=== PATIENT | male | born 1980 | race Caucasian/White ===

== ENCOUNTER 2016-02-11 09:48 | Inpatient (IN) | payer OTHER ==
[~2016-02-11] VITALS: Ht 177.8 cm; Wt 82.8 kg
[2016-02-11] VITALS (10 sets, daily range): BP systolic 80–102; BP diastolic 46–66
[~2016-02-11 09:48] MED LIST: ALBUTEROL2.5 MG/3 M IN; CO Q-10100 MG PO; IBUPROFEN600 MG PO; KEPPRA500 MG PO; LEVAQUIN500 MG PO; TEGRETOL-XR200 MG PO; VITAMIN C TR500 M1 PO; VITAMIN D-31000 UNIT PO; ZYVOX600 MG PO; [UNRECOGNIZED DRUG - MIXTURE] PO
--- NOTE | 2016-02-11 12:28 | DIAGNOSTIC IMAGING REPORT ---
PROCEDURE: XR CHEST 1 VIEW INDICATION: SHORTNESS OF BREATH TECHNIQUE: Portable AP view 12:20 p.m. chest 02/14/20152014 and 2009 COMPARISON: chest 02/14/20152014 and 2009 FINDINGS: There is right lower lobe infiltrate and volume loss. There is a left pleural effusion and infiltrate. Heart and pulmonary vasculature are normal. IMPRESSION: 1. Bibasilar infiltrates with small air bronchograms.
--- NOTE | 2016-02-11 14:30 | ED CLINICAL REPORT ---
Clinical Report - Physicians/Mid Levels [facility] [address] [place] [address] 02/11/2016 9:49 Patient: STEFAN CONRAD JR Arrived- By ambulance. Historian- EMS personnel and family. HISTORY OF PRESENT ILLNESS Chief Complaint: FEVER. This started passed 2 days and is still present and worsening. It was gradual in onset and has been constant but is not gone now. The illness is described as moderate. The patient has had a cough, difficulty breathing and fever. Additional history - The patient has had contact with a sick individual. (mom states that he has not been able to eat or drink in the past several days. Mom states that he is also not been able take any of his medications by mouth.). Similar symptoms previously: ( mother reports several instances where the patient is septicwhen he gets like this.). Recent medical care: Not recently seen/assessed. REVIEW OF SYSTEMS Unable to obtain secondary to patient's status. Patient isdevelopmentally delayed. PAST HISTORY See nurses notes. Additional Surgeries: no known surgeries. Medications: Cephalexin Oral, 3x a day. CarBAMazepine Oral. CoQ-10 Oral. Iodine Oral. Keppra Oral. Vitamins. Allergies: Morphine and Related. Penicillins. Sulfa Antibiotics. SOCIAL HISTORY Never smoker. Not exposed to second-hand smoke at home. No alcohol use or drug use. No recent travel. Is a local resident. FAMILY HISTORY Negative. PHYSICAL EXAM Appearance: Alert. Patient in mild distress. Eyes: Pupils equal, round and reactive to light. Eyes normal inspection. ENT: Ears normal. Nose normal. (Unable to examine posterior pharynx. Patient bites down and does not open his mouth with commands. Unable to open with tongue depressor.). Neck: Normal inspection. Neck supple. CVS: Tachycardia. Heart sounds normal. Pulses normal. Normal rhythm. Respiratory: Retractions. Accessory muscle use. Rhonchi present (Bilateral, right worse than left.). Abdomen: Soft and nontender. No organomegaly. Back: Normal inspection. Skin: Skin warm and dry. Normal skin color. No rash. Normal skin turgor. Extremities: No lower extremity edema. Neuro: (Patient does not follow commands. Moves all 4 extremities spontaneously and purposefully. Upper extremities are in a flexion like contracture.). LABS, X-RAYS, AND EKG Chest X-ray: (PROCEDURE: XR CHEST 1 VIEW INDICATION: SHORTNESS OF BREATH TECHNIQUE: Portable AP view 12:20 p.m. chest 02/14/20152014 and 2009 COMPARISON: chest 02/14/20152014 and 2009 FINDINGS: There is right lower lobe infiltrate and volume loss. There is a left pleural effusion and infiltrate. Heart and pulmonary vasculature are normal. IMPRESSION: 1. Bibasilar infiltrates with small air bronchograms.). Laboratory Tests: UA-Culture if indicated: (HERBERTH: 02/11/2016 11:45) ( [facility] [place] 02/11/2016 12:28) Final results Test Result Flag Units (Reference) URINE COLOR YELLOW URINE APPEARANCE SL CLOUDY URINE GLUCOSE NEGATIVE (NEGATIVE) URINE BILIRUBIN NEGATIVE (NEGATIVE) URINE KETONE 1+ (NEGATIVE) URINE SPECIFIC GRAVITY >= 1.030 (1.010-1.030) URINE PH 5.5 (5.0-8.0) URINE PROTEIN 1+ (NEGATIVE) URINE UROBILINOGEN 0.2 EU/dL (0.2-1.0) URINE NITRITE NEGATIVE (NEGATIVE) URINE BLOOD NEGATIVE (NEGATIVE) URINE LEUK ESTERASE TRACE (NEGATIVE) URINE RBC NONE SEEN rbc/hpf (0-1) URINE WBC 25-50 wbc/hpf (0-1) URINE EPITHELIAL CELLS 3-5 EPI/hpf (0-5) URINE BACTERIA MODERATE (2+ TO 3+) (NONE SEEN) URINE COMMENT CULTURE INDICATED 2+ MUCOUS2+ AMORPHOUS URATESURINE CULTURES ARE SET-UP BASED ON THE FOLLOWING CRITERIA:POSITIVE NITRITEPOSITIVE LEUKOCYTE ESTERASEGREATER THAN 10 WHITE BLOOD CELLSMODERATE (2+) OR GREATER BACTERIA CBC w Diff: (HERBERTH: 02/11/2016 10:45) ( [facility] [place] 02/11/2016 11:39) Final results Test Result Flag Units (Reference) WHITE BLOOD COUNT 18.5 H K/uL (4.5-11.5) RED BLOOD COUNT 4.88 M/uL (4.50-5.90) HEMOGLOBIN 14.3 gm/dL (13.5-17.5) HEMATOCRIT 44.0 % (41.0-53.0) MEAN CELL VOLUME 90 fL (80-100) MEAN CORPUSCULAR HGB 29 pg (26-34) MEAN CORPUSCULAR HGB CONC 33 g/dL (31-37) RED CELL DISTRIBUTION WIDTH 13.1 % (11.6-14.8) PLATELET COUNT 244 K/uL (150-400) POLY % 49 L % (50-75) BAND % 28 H % (0-8) LYMPH 13 L % (25-40) MONO 10 % (3-14) EOSINOPHIL % 0 % (0-4) BASOPHIL % 0 % (0-2) METAMYELOCYTE % 0 % (0-1) MYELOCYTE 0 % (0-1) OTHER CELL TYPE 0 RBC MORPHOLOGY NORMAL MORPHOLOGY Lactate, Serum: (HERBERTH: 02/11/2016 13:00) ( [facility] [place] 02/11/2016 13:48) Final results Test Result Flag Units (Reference) LACTIC ACID 0.6 mmol/L (0.4-2.0) [id number]: (HERBERTH: 02/11/2016 10:45) ( [facility] [place] 02/11/2016 13:42) Final results Test Result Flag Units (Reference) PROCALCITONIN <0.5 ng/mL (0-0.5) PCT Concentration: Interpretation : Risk/option for action PCT <=0.5 ng/mL : Systemic : Low risk forinfection(sepsis): progression to severeis not likely. : systemic infection.Local bacterial : CAUTION-PCT levelsinfection is : below 0.5 ng/mL do notpossible. : exclude an infection,because localizedinfections (withoutsystemic signs) may beassociated with suchlow levels. If PCT ismeasured very earlyafter a bacterialchallenge (usually <6hours), these valuesmay still be low. Inthis case PCT shouldbe re-assessed 6-24hours later. PCT >0.5 and : Systemic infection: Moderate risk for<= 2 ng/mL : (sepsis) is : progression to severepossible, but : systemic infection.other conditions : The patient should beare known to : closely monitoredelevate PCT. : both clinically andby re-assessing PCTwithin 6-24 hours. PCT > 2 ng/mL : Systemic infection: High risk for(sepsis) is likely: progression to severeunless other : systemic infection.causes are known. : PCT >= 10 ng/mL : Important systemic: High likelihood ofinflammatory : severe sepsis orresponse, almost : septic shock.exclusively due to:severe bacterial :sepsis or septic :shock. : CMP: (HERBERTH: 02/11/2016 10:45) ( MsgRcvd 02/11/2016 11:33) Final results Test Result Flag Units (Reference) GLUCOSE 97 mg/dL (70-110) BUN 29 H mg/dL (7-18) CREATININE 0.9 mg/dL (0.6-1.3) Estimated GFR >60 mL/min Estimated GFR- >60 mL/min Note: Persistent reduction over 3 months in eGFR<60 mL/min/1.73 m2 defines CKD. Patients with eGFR values>=60 mL/min/1.73 m2 may also have CKD if evidence ofpersistent proteinuria. Additional information may be foundat www.kidney.org. SODIUM 142 mmol/L (136-145) POTASSIUM 3.3 L mmol/L (3.5-5.1) CHLORIDE 107 mmol/L (98-107) CARBON DIOXIDE 25 mmol/L (21-32) CALCIUM 9.3 mg/dL (8.5-10.1) TOTAL PROTEIN 7.0 g/dL (6.4-8.2) ALBUMIN 3.9 g/dL (3.3-5.0) BILIRUBIN, TOTAL 0.3 mg/dL (0.0-1.0) ALKALINE PHOSPHATASE 95 U/L (46-116) AST (SGOT) 30 U/L (15-37) ALT (SGPT) 55 U/L (12-78) RSV Rapid Screen: (HERBERTH: 02/11/2016 13:10) ( MsgRcvd 02/11/2016 14:41) Final results SPECIMEN DESCRIPTION: MUCUS Test Result Flag Units (Reference) RSV RAPID TEST DATE: 02/11/16 NEGATIVE SCREEN: NEGATIVE If Rapid RSV test is Negative but RSV is still suspected, a confirmatory RSV DFA can be requested. RAPID INFLUENZA SCREEN DATE: 02/11/16 INFLUENZA A: NEGATIVE SCREEN FOR INFLUENZA A INFLUENZA B: NEGATIVE SCREEN FOR INFLUENZA B . Pulse Oximetry: 02/11/2016 09:52 O2 saturation: 93%. (FIO2- simple mask). Interpretation: hypoxemia. PROGRESS AND PROCEDURES Course of Care: The patient is a 35-year-old male who is at baseline noncommunicative presenting for evaluation of respiratory tract symptoms as well as fever. On examination, patient with abnormal breath sounds. Chest x-ray will be ordered as well as breathing treatments for the patient. Patient had artery received several breathing treatments from EMS. This seemed to have improved based on their repeat evaluation. Patient is tachycardic on examination. Fluids will be ordered. Patient with positive urinalysis and abnormal chest x-ray. Had discussion with patient's primary care doctor in regards to the patient's symptoms today here in the emergency department. Patient reportedly havinghistory of chronic urinary tract infections and being incontinent. Regardless, antibiotics for the pneumonia found on chest x-ray will help cover the urinary tract infection. I discussion with mother necrosed his symptoms today here in the emergency department. Laboratory workup is also markable for increased band count. Patient with 28% bands. Patient meets sepsis criteria based on the band count, overall white count, and tachycardia. Blood cultures also obtained. Lactic acid normal. PCTnormal. Consult placed to the hospitalist who will accept the patient. No further recommendations. While patient was here in the emergency department awaiting ICU transfer, patient was noted to have decreased oxygen saturations. Another breathing treatment was ordered forthe hypoxia and rhonchi. Patient was also set up in bed. Patient was slumped over to the right side and suspect that there was a component of restrictionof his lung movement which contributed or exacerbated his hypoxia. Patient significantly improved when sat up. Patient in the mid 80s. However patient is still needing supplemental oxygen at this time. patient's condition is guarded at this time. Do not feel patient needs to be intubated at this time. Patient is not showing any signs of respiratory failure. Discussed with mother workup, diagnosis, and plan of care. All questions answered. Mother expressed understanding of these instructions and was agreeable to them. Critical care performed (60 minutes). Time is exclusive of separately billable procedures. Time includes: direct patient care, patient reassessment, coordination of patient care, interpretation of data (laboratory data, pulse oximetry and chest xrays), review of patient's medical records, medical consultation, family consultation regarding treatment decisions and documentation of patient care. Disposition: Admitted to the Critical Care Unit. CLINICAL IMPRESSION sepsis hypotension pneumonia acute bilateral lower lobe UTI. (Electronically signed by Ashkan Crawford Dr. 02/11/2016 17:25)
--- NOTE | 2016-02-11 14:30 | ED ORDER SUMMARY ---
..... Patient: STEFAN CONRAD JR OrderSheet [facility] VisitID: [id number] [place] [address] 35y, M Registration Date/Time: 02/11/2016 ORDER SHEET Weight: 76 kg (measured) Allergies: Morphine and Related, Penicillins, Sulfa Antibiotics GENERAL ORDERS: CBC w Diff Urgent (10:51 02/11/2016 Mendoza R.N. verbal order read back to Lucy Hobson) (Ack 11:17 [facility] ER Tech1) (11:17 [facility] ER Tech1) CMP Urgent (10:51 02/11/2016 Mendoza R.N. verbal order read back to Lucy Hobson) (Ack 11:17 [facility] ER Tech1) (11:17 [facility] ER Tech1) UA-Culture if indicated Urgent (10:51 02/11/2016 Mendoza R.N. verbal order read back to Lucy Hobson) (Ack 11:17 [facility] ER Tech1) (12:03 omanelli R.N.) - (straight cath) (11:19 02/11/2016 Lucy Hobson) (12:03 Mendoza R.N.) Chest 1V Urgent (11:48 02/11/2016 Mendoza R.NKate verbal order read back to Lucy Hobson) (12:11 omanelli R.N.) Rapid Influenza Screen (Nasal Pharyngeal) (mucus) Urgent (12:46 02/11/2016 Lucy Hobson) (13:20 SBalde R.N.) RSV Rapid Screen (Nasal Pharyngeal) (mucus) Urgent (12:47 02/11/2016 Lucy Hobson) (13:20 LONIalde R.N.) PCT (Procalcitonin) Urgent (12:47 02/11/2016 Lucy Hobson) (13:08 Mendoza R.N.) Lactate, Serum Urgent (12:47 02/11/2016 Lucy Hobson) (13:08 Mendoza R.N.) Blood Culture (No) (N/A) Urgent (13:18 02/11/2016 Lucy Hobson) (13:29 Mendoza R.N.) Potassium Urgent (13:55 02/11/2016 Mendoza R.N. verbal order read back to Lucy Hobson) (13:55 Monicaelli R.N.) (Cancelled: Other13:55 omanelli R.N.) MEDICATION ORDERS: Potassium Chloride PO 20 meq (once now over 1 hour) (13:34 02/11/2016 Lucy Hobson) (Cancelled: Other13:54 Mendoza R.N.) Keppra IVPB 1000 mg (NOW, To be mixed as infusion) (15:46 02/11/2016 Lucy Hobson) (Ack 16:18 ABarnum R.N.) (16:18 ABarnum R.N.) IV FLUIDS: IV NS : initial bolus none -, then 250 mL/hr (NOW) (10:28 02/11/2016 Mendoza R.N. per protocol) (10:31 Mendoza R.N.) IV NS : initial bolus 750 mL (1000 mL/hr), then 1000 mL/hr for X1 (NOW) (12:05 02/11/2016 Mendoza R.NKate verbal order read back to Lucy Hobson) (12:13 Mendoza R.N.) Ceftriaxone IV 2 gm/50mL (NOW) (13:33 02/11/2016 Lucy Hobson) (13:41 Mendoza R.N.) Azithromycin IV 500 mg/250 mL (NOW) (13:34 02/11/2016 Lucy Hobson) (15:31 Mendoza R.N.) Rocephin IV 2 gm/50mL (NOW) (13:39 02/11/2016 Mendoza R.N. verbal order read back to Lucy Hobson) (Cancelled: Duplicate Order13:47 Mendoza R.N.) Potassium Chloride IV 20 meq/100mL (Run no faster than 10 mEq/hr) (13:56 02/11/2016 Mendoza R.N. verbal order read back to Lucy Hobson) (14:02 Mendoza R.N.) IV NS : initial bolus none -, then 1000 mL/hr (NOW) (15:31 02/11/2016 Mendoza R.N. verbal order read back to Lucy Hobson) (15:34 Mendoza R.NKate) (Cancelled: Other17:25 Mendoza Wheeler.Juan Francisco) Ativan IV 1 mg (HIGH ALERT MEDICATION, NOW) (16:19 02/11/2016 ABarnjose d R.N. verbal order read back to Lucy Hobson) (16:20 ABarnum R.N.) ORDER SHEET NOTES: [Electronically signed by Ashkan Crawford Dr. (17:25 02/11/2016)] [Electronically signed by Garcia Nicole R.N. (19:19 02/11/2016)] [Electronically locked/signed by Garcia Nicole R.N. (19:02/11/2016)]
--- NOTE | 2016-02-11 14:30 | ED NURSING NOTES ---
Clinical Report - Nurses [facility] [address] [place] [address] 02/11/2016 9:49 Patient: STEFAN CONRAD JR TRIAGE Triage time 09:40 Feb 11 2016. Acuity: LEVEL 3. Chief Complaint: SHORTNESS OF BREATH and DIFFICULTY BREATHING and (fever). Alert. VISHNU COMA SCORE: Vishnu Coma Scale: 13- eyes open spontaneously (4); best verbal response- inappropriate speech (3); best motor response- obeys commands (6). --10:04 Garcia Nicole R.N. 09:52 02/11/16. BP: 95/61. HR: 121. RR: 24. O2 saturation: 93% on non-rebreather at 13 liters/minute. Pain level now not taken due to patient condition: cannot qualify. --10:04 Garcia Nicole R.N. 10:28 02/11/16. Temp: 99.5 F (rectal). --10:28 Garcia Nicole R.N. Weight: 76 kg measured. Height/Length: 70 inches Estimated. BMI: 24. --09:54 Garcia Nicole R.N. Medications CarBAMazepine Oral. CoQ-10 Oral. Iodine Oral. Keppra Oral. Vitamins. --09:53 Garcia Nicole R.N. Cephalexin Oral, 3x a day. --09:54 Garcia Nicole R.N. Allergies Morphine and Related. Penicillins. Sulfa Antibiotics. --09:53 Garcia Nicole R.N. History Historian: patient. Arrived (MEDIC 46) and accompanied by mother. ( SOB associated with fever). Onset. (about 3 days ago). SURGERY HX: No history of previous surgery. SOCIAL HX: Never smoker. No alcohol use or drug use. No infectious disease exposure. SKIN INTEGRITY ASSESSMENT: Skin integrity risk assessment was performed. Risk factors identified include restricted mobility. ABUSE ASSESSMENT: No report of abuse. NUTRITIONAL RISK ASSESSMENT: The nutritional risk assessment revealed no deficiencies. FALL RISK ASSESSMENT: Fall risk assessment completed. Risk factors identified include patient impairment of mobility. FUNCTIONAL ASSESSMENT: Functional assessment performed: mobility impairment present- this mobility impairment is a new problem. LEARNING NEEDS ASSESSMENT: The learning needs assessment could not be obtained due to the patient's condition. --10:04 Garcia Nicole R.N. PROBLEMS: Laceration. Developmental Delay. Changed Mental Status. Fall. Intubation. Head Injury. Seizure. Recent Travel. Sick Contact. Autism. Febrile Illness. Constipation. Ureterolithiasis. UTI - Urinary Tract Infection. Pneumonia. --10:02 Garcia Nicole R.N. Interventions ID and allergy band on patient. To treatment room. --10:04 Garcia Nicole R.N. PHYSICAL ASSESSMENT To room via stretcher. GENERAL / NEURO / PSYCH: Alert. HEENT: Mucous membranes are pink. RESPIRATORY: No respiratory distress. Respirations not labored. Chest nontender. Breath sounds within normal limits. CVS: Normal sinus rhythm noted. GI / : Abdomen soft and nontender. SKIN: Skin is warm and dry. Normal skin turgor. --10:09 Garcia Nicole R.N. NURSING PROGRESS NOTES Oxygen administered by nonrebreather mask at 100%. Patient gowned. Reassurance given. Patient identifiers checked. Call light placed in reach. Side rails up x 2. Bed placed in lowest position. Brakes of bed on. Patient ready for evaluation- chart flagged and ED physician notified. --10:09 Garcia Nicole R.N. <<STRICKEN ENTRY-- 10:06 02/11/2016 Site #1 started prior to arrival by EMS via IV in the right with an 20g angiocath, with aseptic technique and good blood return; one attempt. Saline lock flushed with 10 mL saline (start by EMS in the field). --10:31 Garcia Nicole R.N. --END STRIKE>> Correction. --17:28 Garcia Nicole R.N. 10:06 02/11/2016 Started bag #1 1000 mL IV Fluids IV NS (Saline); at 250 mL/hr over 4 hour(s) via site #1 via IV pump. Allergies verified and confirmed 5 rights. IV patency established. IV site checked: no pain, redness, or swelling. IV flushed thoroughly pre- and post-medication administration. --10:31 Garcia Nicole R.N. 10:45 02/11/2016 Site #2 started via IV in the right forearm with an 20g angiocath, with aseptic technique and good blood return (start in field by EMS). --12:10 Garcia Nicole R.N. 11:30 02/11/16. Checked patient name, birthdate and medical record number. Blood samples drawn from the left antecubital space peripheral IV site with syringe by nurse ; labeled in presence of the patient and sent to lab: rainbow set. Line flushed with 10 mL normal saline post blood draw. --12:02 Garcia Nicole R.N. 12:00 02/11/16. Patient ID band checked for patient name, birthdate and medical record number: patient confirmed. Catheterized urine collected with return of rogelio-colored cloudy urine; odor is normal; sample sent to lab for urinalysis and culture. Specimen labeled in the presence of the patient. --12:03 Garcia Nicole R.N. <<STRICKEN ENTRY-- 12:00 02/11/2016 Started bag #1 750 mL IV Fluids IV NS (Saline); at 750 mL/hr over 60 minute(s) via site #2 via IV pump. Allergies verified and confirmed 5 rights. IV patency established. IV site checked: no pain, redness, or swelling. IV flushed thoroughly pre- and post-medication administration. --12:13 Garcia Nicole R.N. --END STRIKE>> Correction. --13:33 Garcia Nicole R.N. <<STRICKEN ENTRY-- 13:04 02/11/2016 IV Fluids IV NS Bag Change: bag #1. Total amount infused: 1000. STARTED bag #3 (1000 mL) at 500 mL/hr via IV pump. Confirmed 5 rights. IV patency established. IV site checked: no pain, redness, or swelling. IV flushed thoroughly. --13:09 Garcia Nicole R.N. --END STRIKE>> Correction. --13:34 Garcia Nicole R.N. Patient ID band checked. Flu swab obtained by RN via nasal swab. Labeled in the presence of the patient. --13:23 Jo Ann Jj R.N. 10:06 02/11/2016 Site #1 started prior to arrival by EMS via IV in the left antecubital space with an 18g angiocath, with aseptic technique and good blood return; one attempt. Saline lock flushed with 10 mL saline (start by EMS in the field). --17:28 Garcia Nicole R.N. 12:00 02/11/2016 Started bag #2 750 mL IV Fluids IV NS (Saline); at 750 mL/hr over 60 minute(s) via site #2 via IV pump. Allergies verified and confirmed 5 rights. IV patency established. IV site checked: no pain, redness, or swelling. IV flushed thoroughly pre- and post-medication administration. --13:33 Garcia Nicole R.N. 13:04 02/11/2016 IV Fluids IV NS Bag Change: bag #2. Total amount infused: 1000. STARTED bag #3 (1000 mL) at 500 mL/hr via IV pump. Confirmed 5 rights. IV patency established. IV site checked: no pain, redness, or swelling. IV flushed thoroughly. --13:34 Garcia Nicole R.N. 13:17 02/11/2016 IV Fluids IV NS Discontinued: bag #1 infused. Total amount infused: 1000 mL. IV patency established. IV site checked: no pain, redness, or swelling. IV flushed thoroughly. --13:32 Garcia Nicole R.N. 13:41 02/11/2016 Started 2 gm of Ceftriaxone IVPB in bag #1 50 mL; at 100 mL/hr over 30 minute(s) via site #2 --13:41 Garcia Nicole R.N. 13:57 02/11/2016 Started 20 meq of Potassium Chloride (Potassium Chloride) IVPB in bag #1 100 mL; at 50 mL/hr over 2 hour(s) via site #2 via IV pump. Allergies verified and confirmed 5 rights. IV patency established. IV site checked: no pain, redness, or swelling. IV flushed thoroughly pre- and post-medication administration. --14:02 Garcia Nicole R.N. 14:20 02/11/2016 Ceftriaxone IVPB Discontinued: bag #1. Total amount infused: 50 mL. IV patency established. IV site checked: no pain, redness, or swelling. IV flushed thoroughly. --19:04 Garcia Nicole R.N. 15:06 02/11/2016 Started 500 mg of Azithromycin IVPB in bag #1 250 mL; at 255 mL/hr over 60 minute(s) via site #2 via IV pump. Allergies verified and confirmed 5 rights. IV patency established. IV site checked: no pain, redness, or swelling. IV flushed thoroughly pre- and post-medication administration. --15:31 Garcia Nicole R.N. 15:18 02/11/2016 Started bag #4 1000 mL IV Fluids IV NS (Saline); at 1000 mL/hr over 60 minute(s) via site #2 via IV pump. Allergies verified and confirmed 5 rights. IV patency established. IV site checked: no pain, redness, or swelling. IV flushed thoroughly pre- and post-medication administration. --15:34 Garcia Nicole R.N. 16:13 02/11/2016 Started 1000 mg of Keppra (LevETIRAcetam) IVPB in bag #1 110 mL; at 440 mg/hr over 15 minute(s) via site #2 --16:18 Shruthi May R.NKate 16:15 02/11/2016 Ativan (LORazepam) IVP 1 mg given over 2 minute(s) via site #1. Allergies verified, confirmed 5 rights and sedative warning given to the patient and patient's family. IV patency established. IV site checked: no pain, redness, or swelling. IV flushed thoroughly pre- and post-medication administration. IVP given by RN. --16:20 Shruthi May R.NKate 16:15 02/11/2016 IV Fluids IV NS Discontinued: bag #3 discontinued. Total amount infused: 250 mL. IV patency established. IV site checked: no pain, redness, or swelling. IV flushed thoroughly. --19:02 Garcia Nicole RKateNKate 16:28 02/11/2016 Hold IV Fluids IV NS: due to patient condition. --16:43 Shruthi MaySummer.NKate 16:30 02/11/2016 Azithromycin IVPB Discontinued: bag #1 completed. Total amount infused: 255 mL. IV patency established. IV site checked: no pain, redness, or swelling. IV flushed thoroughly. --16:45 [place]ah[place]May R.NKate 16:38 02/11/2016 Keppra IVPB Discontinued: bag #1 completed. Total amount infused: 110 mL. IV patency established. IV site checked: no pain, redness, or swelling. IV flushed thoroughly. --16:43 [place] R.NKate 16:43 02/11/2016 Ativan IVP Response: no adverse reaction. --16:43 ShruthiMay, R.NKate 12:30 02/11/16. BP: 89/59. HR: 104. RR: 25. O2 saturation: 93% on non-rebreather at 13 liters/minute. --17:47 Garcia Nicole R.N. 13:45 02/11/16. BP: 94/66. HR: 103. RR: 33. O2 saturation: 90% on non-rebreather at 13 liters/minute. --17:49 Garcia Nicole R.N. 14:15 02/11/16. BP: 103/65. HR: 122. RR: 33. O2 saturation: 88% on room air. --17:50 Garcia Nicole R.N. 15:00 02/11/16. BP: 105/65. HR: 171. RR: 39. O2 saturation: 87% on non-rebreather at 13 liters/minute. --17:52 Garcia Nicole R.N. 16:00 02/11/16. BP: 106/67. HR: 155. RR: 38. O2 saturation: 87% on non-rebreather at 13 liters/minute. --17:54 Garcia Nicole R.N. 16:30 02/11/16. BP: 95/67. HR: 156. RR: 38. O2 saturation: 86% on non-rebreather at 13 liters/minute. --17:55 Garcia Nicole R.N. 17:00 02/11/2016 Potassium Chloride IVPB Discontinued: infused. Total amount infused: 100 mL. IV patency established. IV site checked: no pain, redness, or swelling. IV flushed thoroughly. (Potassium Chloride 20MEq IVPB). --19:07 Garcia Nicole R.N. 17:03 02/11/2016 Site #[address] upon admission; patent, no pain and no signs of infection or infiltration. Good blood return present; flushes easily. --19:16 Garcia Nicole R.N. 17:03 02/11/2016 Site #[address] upon admission; patent, no pain and no signs of infection or infiltration. Good blood return present. Flushed. --19:18 Garcia Nicole R.N. DISPOSITION / DISCHARGE 16:55 02/11/16. BP: 84/51. HR: 160. RR: 38. O2 saturation: 87% on non-rebreather at 13 liters/minute. --17:34 Garcia Nicole R.N. Departure time: 1703. --17:34 Garcia Nicole R.N. 17:03. Admitted to the Critical Care Unit. Transported via stretcher by nurse with monitor, IV, O2 and ambu bag. Patient's personal items; items were placed in belongings bag, given to the patient and transported with the patient. --17:37 Garcia Nicole R.N. Locked/Released at 02/11/2016 19:19 by Garcia Nicole R.N.
--- NOTE | 2016-02-11 14:30 | ED ORDER SUMMARY ---
..... Patient: STEFAN CONRAD JR OrderSheet [facility] VisitID: [id number] [place] [address] 35y, M Registration Date/Time: 02/11/2016 ORDER SHEET Weight: 76 kg (measured) Allergies: Morphine and Related, Penicillins, Sulfa Antibiotics GENERAL ORDERS: CBC w Diff Urgent (10:51 02/11/2016 Mendoza R.N. verbal order read back to Lucy Hobson) (Ack 11:17 [facility] ER Tech1) (11:17 [facility] ER Tech1) CMP Urgent (10:51 02/11/2016 Mendoza R.N. verbal order read back to Lucy Hobson) (Ack 11:17 [facility] ER Tech1) (11:17 [facility] ER Tech1) UA-Culture if indicated Urgent (10:51 02/11/2016 Mendoza R.N. verbal order read back to Lucy Hobson) (Ack 11:17 [facility] ER Tech1) (12:03 omanelli R.N.) - (straight cath) (11:19 02/11/2016 Lucy Hobson) (12:03 Mendoza R.N.) Chest 1V Urgent (11:48 02/11/2016 Mendoza R.NKate verbal order read back to Lucy Hobson) (12:11 omanelli R.N.) Rapid Influenza Screen (Nasal Pharyngeal) (mucus) Urgent (12:46 02/11/2016 Lucy Hobson) (13:20 SBalde R.N.) RSV Rapid Screen (Nasal Pharyngeal) (mucus) Urgent (12:47 02/11/2016 Lucy Hobson) (13:20 LONIalde R.N.) PCT (Procalcitonin) Urgent (12:47 02/11/2016 Lucy Hobson) (13:08 Mendoza R.N.) Lactate, Serum Urgent (12:47 02/11/2016 Lucy Hobson) (13:08 Mendoza R.N.) Blood Culture (No) (N/A) Urgent (13:18 02/11/2016 Lucy Hobson) (13:29 Mendoza R.N.) Potassium Urgent (13:55 02/11/2016 Mendoza R.N. verbal order read back to Lucy Hobson) (13:55 Monicaelli R.N.) (Cancelled: Other13:55 omanelli R.N.) MEDICATION ORDERS: Potassium Chloride PO 20 meq (once now over 1 hour) (13:34 02/11/2016 Lucy Hobson) (Cancelled: Other13:54 Mendoza R.N.) Keppra IVPB 1000 mg (NOW, To be mixed as infusion) (15:46 02/11/2016 Lucy Hobson) (Ack 16:18 ABarnum R.N.) (16:18 ABarnum R.N.) IV FLUIDS: IV NS : initial bolus none -, then 250 mL/hr (NOW) (10:28 02/11/2016 Mendoza R.N. per protocol) (10:31 Mendoza R.N.) IV NS : initial bolus 750 mL (1000 mL/hr), then 1000 mL/hr for X1 (NOW) (12:05 02/11/2016 Mendoza R.NKate verbal order read back to Lucy Hobson) (12:13 Mendoza R.N.) Ceftriaxone IV 2 gm/50mL (NOW) (13:33 02/11/2016 Lucy Hobson) (13:41 Mendoza R.N.) Azithromycin IV 500 mg/250 mL (NOW) (13:34 02/11/2016 Lucy Hobson) (15:31 Mendoza R.N.) Rocephin IV 2 gm/50mL (NOW) (13:39 02/11/2016 Mendoza R.N. verbal order read back to Lucy Hobson) (Cancelled: Duplicate Order13:47 Mendoza R.N.) Potassium Chloride IV 20 meq/100mL (Run no faster than 10 mEq/hr) (13:56 02/11/2016 Mendoza R.N. verbal order read back to Lucy Hobson) (14:02 Mendoza R.N.) IV NS : initial bolus none -, then 1000 mL/hr (NOW) (15:31 02/11/2016 Mendoza R.N. verbal order read back to Lucy Hobson) (15:34 Mendoza R.NKate) (Cancelled: Other17:25 Mendoza Wheeler.Juan Francisco) Ativan IV 1 mg (HIGH ALERT MEDICATION, NOW) (16:19 02/11/2016 ABarnjose d R.N. verbal order read back to Lucy Hobson) (16:20 ABarnum R.N.) ORDER SHEET NOTES: [Electronically signed by Ashkan Crawford Dr. (17:25 02/11/2016)] [Electronically signed by Garcia Nicole R.N. (19:19 02/11/2016)] [Electronically locked/signed by Garcia Nicole R.N. (19:02/11/2016)]
--- NOTE | 2016-02-11 15:59 | Progress Note ---
Subjective General Admission History and Physical Examination Patient Name: Lester Hsieh Jr Admission Date: February 11, 2016 Primary Care Provider: Palmer Cortez M.D. Attending Physician: Ollie Pratt M.D. Admitting Physician: Ollie Pratt M.D. SUBJECTIVE Historian: Previous records Reliability: Fair-poor Chief Complaint: Shortness of breath, difficulty breathing History of Present Illness: The patient is a 35-year-old single white male with a significant past make a history of autism/developmental delay, seizure disorder, history of DVTs, recurrent UTI, asthma, who presented to [facility] emergency department on the day of admission secondary to complaints of shortness of breath and difficulty breathing. [facility] ER evaluation was consistent with bibasilar pneumonia, UTI, possible sepsis. Secondary to the above, Dr. Palmer Cortez (patient's PCP) was contacted and he requested the patient be admitted by the hospitalist service. Secondary to the above, the patient was admitted by Ollie Pratt M.D. for further evaluation and treatment. No other history available at this time. The history of present illness began approximately 3 days prior to admission when the patient developed cough, rhinorrhea, and shortness of breath. His symptoms worsened and he was seen by his family physician Dr. Cortez on the day prior to admission. He was placed on Keflex at that time. His symptoms worsened with increasing shortness of breath respiratory distress which prompted evaluation at [facility] emergency department. Evaluation [facility] emergency department showed the patient to have vital signs of blood pressure 95/61, pulse 121, respirations 24, temperature 99.5 rectally, O2 sat 93% on nonrebreather. The patient was noted to have mild respiratory distress. Laboratory evaluation included CBC hemoglobin 14.3, hematocrit 44.0, WBC 18.5, with a differential of 28 bands, 49 segs, 13 lymphs. Chemistry profile sodium 142, potassium 3.3, chloride 107, CO2 25, BUN 29, creatinine 0.9, Procalcitonin less than 0.5, lactic acid 0.6. Urinalysis trace leukocyte esterase, 25-50 WBCs, moderate bacteria. Chest x-ray showed bibasilar infiltrates. The patient had mild hypotension was treated with vigorous IV fluid support and admitted with a diagnosis of pneumonia, UTI, sepsis for further evaluation and treatment. PAST MEDICAL HISTORY Illnesses: 1. Developmental delay 2. Autism 3. Seizure disorder 4. History of DVTs 5. Recurrent UTI Allergies: 1. Morphine 2. Penicillin 3. Sulfa Medications: 1. Keppra 1000 mg by mouth twice a day 2. Tegretol 400 mg by mouth every morning and 600 mg by mouth every afternoon 3. Vitamin C 1000 mg by mouth twice a day 4. Keflex 500 mg by mouth 4 times a day Surgery: 1. None Injuries: 1. 2015, spinal fracture 2. Head injury-childhood Hospitalizations: 1. For above medical problems FAMILY HISTORY Parents: 1. Father, call, living, 61, multiple medical problems, 2. Mother, unknown Siblings: 1. Male, Ken, living, 29, development delay Children: 1. None Other significant family history: None SOCIAL HISTORY 1. Marital Status: Single 2. Zoroastrianism: None 3. Education: None 4. Employment History: Unemployed, disabled 5. Occupational health exposures: None HABITS 1. Tobacco: None 2. Drugs: None 3. Alcohol: None HEALTH SUPERVISION Item/Test 1. Not reviewed IMMUNIZATIONS: 1. Pneumococcal: 2017 2. Influenza: 2017 3. Tetanus: Unknown ADVANCED DIRECTIVES: Patient's family wishes patient placed a FULL CODE STATUS during his hospitalization REVIEW OF SYSTEMS Remarkable for those things stated in the history of present illness and past medical history. Seventeen point review of system completed with the following notable findings: Unobtainable due to patient's mental status no family present Physical Exam Vital Signs / I&Os Vital Signs Date Time Temp Pulse Resp B/P Pulse O2 O2 Flow FiO2 Ox Delivery Rate 02/10 1756 90/55 02/10 1740 15.0 02/10 1718 102.9 152 36 95/55 93 15.0 Non-Rebreather Mask 02/10 1606 15.0 General Appearance Moderate distress, Minimally interactive, no verbal response HEENT Atraumatic, PERRLA, EOMI, dry mucous membranes Lungs Normal air movement, decreased breath sounds bilateral bases with rales present one third up posterior chest wall Neck Supple, No JVD Cardiovascular Normal S1 and S2, No murmurs, gallops, rubs, tachycardic Abdomen Normal bowel sounds, Soft, No tenderness, No guarding Extremities No cyanosis, No clubbing, No edema, poor capillary refill Neurological Cranial nerves intact, No lateralizing signs Psych/Mental Status Lethargic but interactive LAB Results Laboratory Tests 02/10 02/10 02/10 1300 1145 1045 Chemistry Lactic Acid (0.4 - 2.0 mmol/L) 0.6 Procalcitonin (0 - 0.5 ng/mL) <0.5 Urines Urine Color YELLOW Urine Appearance SL CLOUDY Urine pH (5.0 - 8.0) 5.5 Ur Specific [place] (1.010 - 1.030) >= 1.030 Urine Protein (NEGATIVE) 1+ Urine Ketones (NEGATIVE) 1+ Urine Blood (NEGATIVE) NEGATIVE Urine Nitrite (NEGATIVE) NEGATIVE Urine Bilirubin (NEGATIVE) NEGATIVE Urine Urobilinogen (0.2 - 1.0 EU/dL) 0.2 Ur Leukocyte Esterase (NEGATIVE) TRACE Urine RBC (0 - 1 rbc/hpf) NONE SEEN Urine WBC (0 - 1 wbc/hpf) 25-50 Ur Epithelial Cells (0 - 5 EPI/hpf) 3-5 Urine Bacteria (NONE SEEN) MODERATE (2+ TO 3+) Urine Glucose (NEGATIVE) NEGATIVE Urine Comment CULTURE INDICATED 02/10 1045 Chemistry Plasma Sodium (136 - 145 mmol/L) 142 Plasma Potassium (3.5 - 5.1 mmol/L) 3.3 Plasma Chloride (98 - 107 mmol/L) 107 CO2 (Enzymatic) (21 - 32 mmol/L) 25 BUN (7 - 18 mg/dL) 29 Creatinine (0.6 - 1.3 mg/dL) 0.9 Est GFR ( Amer) (mL/min) >60 Est GFR (Non-Af Amer) (mL/min) >60 Glucose (70 - 110 mg/dL) 97 Plasma Calcium (8.5 - 10.1 mg/dL) 9.3 Total Bilirubin (0.0 - 1.0 mg/dL) 0.3 AST (15 - 37 U/L) 30 ALT (12 - 78 U/L) 55 Alkaline Phosphatase (46 - 116 U/L) 95 Total Protein (6.4 - 8.2 g/dL) 7.0 Albumin (3.3 - 5.0 g/dL) 3.9 Hematology WBC (4.5 - 11.5 K/uL) 18.5 RBC (4.50 - 5.90 M/uL) 4.88 Hgb (13.5 - 17.5 gm/dL) 14.3 Hct (41.0 - 53.0 %) 44.0 MCV (80 - 100 fL) 90 MCH (26 - 34 pg) 29 RDW (11.6 - 14.8 %) 13.1 Neut % (Auto) (50 - 75 %) 49 Lymph % (Auto) (25 - 40 %) 13 [place] % (Auto) (3 - 14 %) 10 Eos % (Auto) (0 - 4 %) 0 Baso % (Auto) (0 - 2 %) 0 Band Neutrophils % (0 - 8 %) 28 Metamyelocytes % (0 - 1 %) 0 Myelocytes (0 - 1 %) 0 Other Cell Type 0 Plt Count, EDTA (150 - 400 K/uL) 244 RBC Morphology NORMAL MORPHOLOGY PUBS MCHC (31 - 37 g/dL) 33 Microbiology Date/Time Procedure - Status Source Growth 02/10 1310 Respiratory Syncytial Virus Ag Scrn - COMP NASALPHAR 02/10 1310 Influenza Screen - COMP NASALPHAR 02/10 1309 Blood Culture - RECD BLOOD 02/10 1300 Blood Culture - RECD BLOOD 02/10 1145 Urine Culture - RECD URINE CC Imaging Chest X-Ray IMPRESSION: 1. Bibasilar infiltrates with small air bronchograms. Dictated by: EDER CHACON MD D: HERMAN;02/11/16 1228 Assessment and Plan Problem List 1. Pneumonia Plan -Patient presents with findings of bibasilar pneumonia with associated rest or insufficiency/hypoxia -Ceftriaxone/Zithromax given in the ER. Switch to Levaquin 750 mg IV and ertapenem 1 g IV daily -Procalcitonin, lactate within normal limits in ER. Repeat lactate increased at 2.2. Recheck Procalcitonin -Influenza screen, RSV screen negative -Monitor 2. UTI (urinary tract infection) Plan -Patient with findings of UTI -Antimicrobials as noted above -Urine C&S pending -Monitor 3. Sepsis Plan -Patient with findings of sepsis -Critically ill -Vigorous IV fluid support greater than 20 mg/kg fluid challenge 2 -Levophed to maintain systolic blood pressure greater than 90 mmHg, MAP 65 -Smith catheter -Central line placement as needed to monitor CVP 4. Hypotension Plan -See above -Fluid challenge 20 ml/kg 2 -Levophed 5. Seizure disorder Plan -Patient with history of seizure disorder -Continue outpatient medical regimen -Monitor -No recent seizure activity Current status: Unstable, critical Anticipated discharge date: Anticipated discharge in 4-5 days Anticipated discharge placement: Home Patient care time: Time spent in chart review, ER physician consultation, patient and family interview, physical exam, CPOE, and care documentation, 1-1 bedside attendance: Time spent 95 minutes Visit to patient today: 3 Complexity of care: High Severity of illness discussed with the patient's mother. She is aware of the critical nature of the patient's current condition. She agrees to intubation/ mechanical ventilation/central line placement as necessary. Prognosis guarded E&M Codes Critical Care: 30-74 min/73034, Each add'l 30 min/[id number]
[2016-02-11] MEDS ORDERED: KEFLEX500 M1 PO (17:52)
[2016-02-11] MEDS ORDERED: CARBAMAZEPINE200 MG PO (17:54)
--- NOTE | 2016-02-11 18:48 | NUR ---
35 YR OLD MALE ADMITTED TO 305. HR 160'S, T 102.9, SATS 88%. ON ADMIT. SBP 80'S. DR. GIBBS NOTIFIED AND ORDERS RECEIVED. SUCTIONED FOR LARGE AMOUNT OF PUS TEXTURE, COLOR SPUTUM. SPECIMAN SENT TO LAB. HR NOW IN THE 130'S, BP 100/54, SATS 92% ON NRM.
--- NOTE | 2016-02-11 19:20 | ED MAR SUMMARY ---
..... Medication Administration Record [facility] [address] [place] [address] Patient: STEFAN CONRAD Visit ID: [id number] 35y, M Weight: 76.0 kg Height/Length: 70 in BMI: 24 ALLERGIES: Morphine and Related, Penicillins, Sulfa Antibiotics Start 10:06 02/11/2016 Garcia Nicole R.N., Stop 13:17 02/11/2016 Garcia Nicole R.N. Medication Administered: IV NS (SALINE), Dose: IV Fluids over 4 hour(s), Rate: 250 mL/hr, Dispensed: 1000 mL bag, Site: #1 left AC. Medication Ordered: IV NS : initial bolus none -, then 250 mL/hr (NOW). Start 12:00 02/11/2016 Garcia Nicole R.N., Stop 16:15 02/11/2016 Garcia Nicole R.N. Medication Administered: IV NS (SALINE), Dose: IV Fluids over 60 minute(s), Rate: 750 mL/hr, Dispensed: 750 mL bag, Site: #2 right forearm. Medication Ordered: IV NS : initial bolus 750 mL (1000 mL/hr), then 1000 mL/hr for X1 (NOW). Start 13:41 02/11/2016 Garcia Nicole R.N., Stop 14:20 02/11/2016 Garcia Niocle R.N. Medication Administered: CEFTRIAXONE [IVPB], Dose: 2 gm IVPB over 30 minute(s), Rate: 100 mL/hr, Dispensed: 50 mL bag, Site: #2 right forearm. Medication Ordered: Ceftriaxone IV 2 gm/50mL (NOW). Start 13:57 02/11/2016 Garcia Nicole R.N., Stop 17:00 02/11/2016 Garcia Nicole R.N. Medication Administered: POTASSIUM CHLORIDE [IVPB] (POTASSIUM CHLORIDE), Dose: 20 meq IVPB over 2 hour(s), Rate: 50 mL/hr, Dispensed: 100 mL bag, Site: #2 right forearm. Medication Ordered: Potassium Chloride IV 20 meq/100mL (Run no faster than 10 mEq/hr). Start 15:06 02/11/2016 Garcia Nicole R.N., Stop 16:30 02/11/2016 Samantha Hawkins R.N. Medication Administered: AZITHROMYCIN [IVPB], Dose: 500 mg IVPB over 60 minute(s), Rate: 255 mL/hr, Dispensed: 250 mL bag, Site: #2 right forearm. Medication Ordered: Azithromycin IV 500 mg/250 mL (NOW). Start 15:18 02/11/2016 Garcia Nicole R.N. Medication Administered: IV NS (SALINE), Dose: IV Fluids over 60 minute(s), Rate: 1000 mL/hr, Dispensed: 1000 mL bag, Site: #2 right forearm. Medication Ordered: IV NS : initial bolus none -, then 1000 mL/hr (NOW). Start 16:13 02/11/2016 Samantha Hawkins R.N., Stop 16:38 02/11/2016 Samantha Hawkins R.N. Medication Administered: KEPPRA [IVPB] (LEVETIRACETAM), Dose: 1000 mg IVPB over 15 minute(s), Rate: 440 mg/hr, Dispensed: 110 mL bag, Site: #2 right forearm. Medication Ordered: Keppra IVPB 1000 mg (NOW, To be mixed as infusion). Given 16:15 02/11/2016 Samantha Hawkins R.N. Medication Administered: ATIVAN [IVP] (LORAZEPAM), Dose: 1 mg IVP over 2 minute(s), Site: #1 left AC. Medication Ordered: Ativan IV 1 mg (HIGH ALERT MEDICATION, NOW).
--- NOTE | 2016-02-11 19:20 | ED MAR SUMMARY ---
..... Medication Administration Record [facility] [address] [place] [address] Patient: STEFAN CONRAD Visit ID: [id number] 35y, M Weight: 76.0 kg Height/Length: 70 in BMI: 24 ALLERGIES: Morphine and Related, Penicillins, Sulfa Antibiotics Start 10:06 02/11/2016 Garcia Nicole R.N., Stop 13:17 02/11/2016 Garcia Nicole R.N. Medication Administered: IV NS (SALINE), Dose: IV Fluids over 4 hour(s), Rate: 250 mL/hr, Dispensed: 1000 mL bag, Site: #1 left AC. Medication Ordered: IV NS : initial bolus none -, then 250 mL/hr (NOW). Start 12:00 02/11/2016 Garcia Nicole R.N., Stop 16:15 02/11/2016 Garcia Nicole R.N. Medication Administered: IV NS (SALINE), Dose: IV Fluids over 60 minute(s), Rate: 750 mL/hr, Dispensed: 750 mL bag, Site: #2 right forearm. Medication Ordered: IV NS : initial bolus 750 mL (1000 mL/hr), then 1000 mL/hr for X1 (NOW). Start 13:41 02/11/2016 Garcia Nicole R.N., Stop 14:20 02/11/2016 Garcia Nicole R.N. Medication Administered: CEFTRIAXONE [IVPB], Dose: 2 gm IVPB over 30 minute(s), Rate: 100 mL/hr, Dispensed: 50 mL bag, Site: #2 right forearm. Medication Ordered: Ceftriaxone IV 2 gm/50mL (NOW). Start 13:57 02/11/2016 Garcia Nicole R.N., Stop 17:00 02/11/2016 Garcia Nicole R.N. Medication Administered: POTASSIUM CHLORIDE [IVPB] (POTASSIUM CHLORIDE), Dose: 20 meq IVPB over 2 hour(s), Rate: 50 mL/hr, Dispensed: 100 mL bag, Site: #2 right forearm. Medication Ordered: Potassium Chloride IV 20 meq/100mL (Run no faster than 10 mEq/hr). Start 15:06 02/11/2016 Garcia Nicole R.N., Stop 16:30 02/11/2016 Samantha Hawkins R.N. Medication Administered: AZITHROMYCIN [IVPB], Dose: 500 mg IVPB over 60 minute(s), Rate: 255 mL/hr, Dispensed: 250 mL bag, Site: #2 right forearm. Medication Ordered: Azithromycin IV 500 mg/250 mL (NOW). Start 15:18 02/11/2016 Garcia Nicole R.N. Medication Administered: IV NS (SALINE), Dose: IV Fluids over 60 minute(s), Rate: 1000 mL/hr, Dispensed: 1000 mL bag, Site: #2 right forearm. Medication Ordered: IV NS : initial bolus none -, then 1000 mL/hr (NOW). Start 16:13 02/11/2016 Samantha Hawkins R.N., Stop 16:38 02/11/2016 Samantha Hawkins R.N. Medication Administered: KEPPRA [IVPB] (LEVETIRACETAM), Dose: 1000 mg IVPB over 15 minute(s), Rate: 440 mg/hr, Dispensed: 110 mL bag, Site: #2 right forearm. Medication Ordered: Keppra IVPB 1000 mg (NOW, To be mixed as infusion). Given 16:15 02/11/2016 Samantha Hawkins R.N. Medication Administered: ATIVAN [IVP] (LORAZEPAM), Dose: 1 mg IVP over 2 minute(s), Site: #1 left AC. Medication Ordered: Ativan IV 1 mg (HIGH ALERT MEDICATION, NOW).
--- NOTE | 2016-02-11 19:20 | ED MED RECONCILIATION SUMMARY ---
Patient: STEFAN CONRAD JR Medication Reconciliation Report [facility] VisitID: [id number] [address] [place] [address] 35y, M Registration Date/Time: 02/11/2016 Weight: 76 kg Height/Length: 70 in. BMI: 24.0 ALLERGIES: Morphine and Related, Penicillins, Sulfa Antibiotics The patient's Home Medications are listed below: THE FOLLOWING MEDICATIONS NEED TO BE RECONCILED: CarBAMazepine Oral Cephalexin Oral, 3x a day CoQ-10 Oral Iodine Oral Keppra Oral Vitamins The source(s) of the original Home Medication information: Not obtained. The following Medications were given to the patient in the Emergency Department: IV NS IV Fluids bolus 0, then 250 mL/hr, administered: 02/11/2016 10:06:00 AM IV NS IV Fluids bolus 0, then 750 mL/hr, administered: 02/11/2016 12:00:00 PM Ceftriaxone [IVPB] IVPB bolus 0, then 2 gm 100 mL/hr, administered: 02/11/2016 1:41:00 PM Potassium Chloride [IVPB] IVPB bolus 0, then 20 meq 50 mL/hr, administered: 02/11/2016 1:57:00 PM Azithromycin [IVPB] IVPB bolus 0, then 500 mg 255 mL/hr, administered: 02/11/2016 3:06:00 PM IV NS IV Fluids bolus 0, then 1000 mL/hr, administered: 02/11/2016 3:18:00 PM Keppra [IVPB] IVPB bolus 0, then 1000 mg 440 mg/hr, administered: 02/11/2016 4:13:00 PM Ativan [IVP] IVP 1 mg, administered: 02/11/2016 4:15:00 PM The following Medications were prescribed to the patient: None.
--- NOTE | 2016-02-11 19:20 | ED MED RECONCILIATION SUMMARY ---
Patient: STEFAN CONRAD JR Medication Reconciliation Report [facility] VisitID: [id number] [address] [place] [address] 35y, M Registration Date/Time: 02/11/2016 Weight: 76 kg Height/Length: 70 in. BMI: 24.0 ALLERGIES: Morphine and Related, Penicillins, Sulfa Antibiotics The patient's Home Medications are listed below: THE FOLLOWING MEDICATIONS NEED TO BE RECONCILED: CarBAMazepine Oral Cephalexin Oral, 3x a day CoQ-10 Oral Iodine Oral Keppra Oral Vitamins The source(s) of the original Home Medication information: Not obtained. The following Medications were given to the patient in the Emergency Department: IV NS IV Fluids bolus 0, then 250 mL/hr, administered: 02/11/2016 10:06:00 AM IV NS IV Fluids bolus 0, then 750 mL/hr, administered: 02/11/2016 12:00:00 PM Ceftriaxone [IVPB] IVPB bolus 0, then 2 gm 100 mL/hr, administered: 02/11/2016 1:41:00 PM Potassium Chloride [IVPB] IVPB bolus 0, then 20 meq 50 mL/hr, administered: 02/11/2016 1:57:00 PM Azithromycin [IVPB] IVPB bolus 0, then 500 mg 255 mL/hr, administered: 02/11/2016 3:06:00 PM IV NS IV Fluids bolus 0, then 1000 mL/hr, administered: 02/11/2016 3:18:00 PM Keppra [IVPB] IVPB bolus 0, then 1000 mg 440 mg/hr, administered: 02/11/2016 4:13:00 PM Ativan [IVP] IVP 1 mg, administered: 02/11/2016 4:15:00 PM The following Medications were prescribed to the patient: None.
--- NOTE | 2016-02-11 19:20 | ED DISCHARGE INSTRUCTIONS ---
Patient: ANAMARIA STEFAN Giuliano General Instructions [facility] VisitID: [id number] [address] [place] [address] 35y, M Registration Date/Time: 02/11/2016 sepsis hypotension pneumonia acute bilateral lower lobe UTI. (Electronically signed by Ashkan Crawford Dr. 02/11/2016 17:25)
--- NOTE | 2016-02-11 19:20 | ED DISCHARGE INSTRUCTIONS ---
Patient: ANAMARIA STEFAN Giuliano General Instructions [facility] VisitID: [id number] [address] [place] [address] 35y, M Registration Date/Time: 02/11/2016 sepsis hypotension pneumonia acute bilateral lower lobe UTI. (Electronically signed by Ashkan Crawford Dr. 02/11/2016 17:25)
--- NOTE | 2016-02-11 20:08 | DIAGNOSTIC IMAGING REPORT ---
PROCEDURE: XR CHEST 1 VIEW INDICATION: PICC PLACEMENT TECHNIQUE: Portable AP view 07:51 p.m. COMPARISON: Chest x-ray 02/11/2016 at 12:12 p.m. FINDINGS: Interval placement of a right PICC line with the tip in the right atrium which needs to be pulled back approximately 3.5 cm. No change in the bibasilar infiltrates and right pleural effusion. Heart size and part vessels are normal. Heart and mediastinum are normal. Thorax is normal. IMPRESSION: 1. Right PICC line with the tip in the right atrium which needs to be pulled back 3.5 cm 2. Stable bibasilar infiltrates and right pleural effusion 3. Results discussed with respiratory (Ean)
--- NOTE | 2016-02-11 20:42 | NUR ---
BLOOD PRESSURE AT 79/49 - LEVOPHED STARTED AT 2 MCG/MIN. NORMAL SALINE BOLUS INFUSING. PT IS ALERT. IV MAGNESIUM INFUSING. NONRESPONSIVE VERBALLY. UNABLE TO FOLLOW COMMANDS. DOUBLE LUMEN PICC LINE COMFIRMED BY XRAY. DR PALMER HAS BEEN IN TO SEE PT. HEART RATE AT 127. NONREBREATHER AT 15 LITER - O2 SATS AT 97%. BED ALARM ON.
--- NOTE | 2016-02-11 20:51 | NUR ---
PT IS RESTING IN BED. COOPERATIVE TO CARE. AXILLARY TEMP AT 99.9. PT IN NONCOMMUNICATIVE, NOT ABLE TO FOLLOW DIRECTIONS, ALERT. GENERALIZED WEAKNESSNOTED BUT MOVING ALL EXTRMEITIES IN BED. FLACC SCALE 0. WAFFLE MATTRESS IN PLACE. NO SCDS - HEPARIN SC ORDERED. PICC LINE TO AZAM UNREMARKABLE - DRESSING CDI. PT IS WITHIN SITE OF NURSES STATION.
--- NOTE | 2016-02-11 20:53 | NUR ---
BLOOD PRESSURE AT 83/51 - INCREASED LEVOPHED TO 3 MCG/MIN - WILL CONTNIUE TO MONITOR. MONTERO IN PLACE DRAINING YELLOW URINE, SEDIMENT NOTED. STRABILZED TO LEFT LEG.
--- NOTE | 2016-02-11 21:25 | NUR ---
BOOD PRESSURE AT 83/56, MAP OF 65. LEVOPHED IN FUSING AT 8MCG/MIN PER DR PALMER. HEART RATE AT 123. RESPIRATIONS AT 30, O2 SATS AT 93% ON 15 LITER NONREBREATHER.
[2016-02-12] VITALS (25 sets, daily range): BP systolic 92–123; BP diastolic 54–83
--- NOTE | 2016-02-12 00:15 | NUR ---
RESPIRATORY THERAPIST IN TO SEE AND ASSESS PT. NT SUCTION ADMINISTERED.
--- NOTE | 2016-02-12 00:29 | NUR ---
DR PALMER AWARE OF PTS CURRANT STATUS, MAP OF 90, LEVOPHED AT 6MCG/MIN, HEART RATE IN THE 130'S, RESPIRATIONS IN THE 30'S, TEMP OF 100.7, THAT PT IS TREMULOUS/SHAKEY BUT ALERT - AWAITING NEW ORDERS. PLAN TO ADMINISTER TN TYLENOL PER DR PALMER.
--- NOTE | 2016-02-12 01:00 | NUR ---
LATE ENTRY - METORPOLOL IV GIVEN FOR A HEART RATE OF 133 - WILL CONTINUE TO MONITOR.
--- NOTE | 2016-02-12 02:09 | NUR ---
PT DOWN TO RADIOLOGY FOR A CT ANGIOGRAM PER DR VANCE ORDERS. RN NURSE EXTERN, RESPIRATORY THERAPIST AND EXECUTIVE STAFF ASSISTANT TRANSPORTED PT.
--- NOTE | 2016-02-12 02:12 | NUR ---
LATE ENTRY - PT PLACED ON HIGH FLOW NASAL CANULA AT 0115 PER ORDERS. SETTINGS AT 40L AND 100% 02. DR PALMER AT BEDSIDE.
--- NOTE | 2016-02-12 02:35 | NUR ---
PT BACK TO FLOOR WITH RESPIRATORY THERAPIST, RN TEMPERATURE LOGGING OPERATOR AND ELEMENTARY EDUCATION TUTOR. CANVAS BASTER SPOKE WITH DR PALEMR.
--- NOTE | 2016-02-12 02:44 | NUR ---
METORPOLOL 5MG IV GIVEN FOR A HEART RATE IN THE 150'S PER DR VANCE ORDERS
--- NOTE | 2016-02-12 03:30 | NUR ---
ON RETURN FROM CT, HR UP TO 158, RR UP TO 50. METOPROLOL GIVEN AND PT STARTED ON CPAP AT 100% FIO2. PREPARING FOR POSSIBLE INTUBATION. MD SPEAKING WITH ED PHYSICIAN AND FAMILY MEMBER. AFTER A LITTLE WHILE ON CPAP, VITALS BEGAN TO IMPROVE; SATS INCREASING, HR DECREASING. MD REQUESTED EKG AND PT FOUND TO BE IN AFIB. CARDIZEM GTT ORDERED AND INITIATED.
--- NOTE | 2016-02-12 04:55 | NUR ---
PT RESTING IN BED. ALERT. NO CHANGES TO MENTATION. PT REMAINS ON CPAP AT 100%, O2 SATS AT 98%, HEART RATE 112 SINUS TACH, RESP AT 31. CVP READING AT 8. LEVOPHED INFUSING AT 8MCG/MIN, DILTIAZEM INFUSING AT 10MG/HR. LAST BLOOD PRESSURE AT 100/65, MAP OF 76. PT WAS JUST TURNED, REPOSITIONED, PERICARE PROVIDED, ATTENDS CHANGED - LARGE BM. PT TOLERATED WELL. PT RMEAINS WITHIN SITE OF THE NURSES STATION.
--- NOTE | 2016-02-12 06:36 | DIAGNOSTIC IMAGING REPORT ---
PROCEDURE: CTA THORAX WITH CONTRAST INDICATION: Shortness of breath and elevated D-dimer. TECHNIQUE: 90 ml of Isovue 370 was injected intravenously and axial images were obtained of the entire thorax with 3D sagittal and coronal MIP reconstructions. Preliminary report provided by Sarah Gonzalez MD ([facility]). COMPARISON: Compared to chest x-ray on 02/11/2016. FINDINGS: Study is partially limited due to motion, and the patient was unable to fully cooperate (reportedly noncommunicative). There is severe consolidation/pneumonia at the right lung base with moderate consolidation at the left lung base. There is relative sparing of the upper lungs. Central pulmonary vessels are normal and there is no evidence of central pulmonary embolus. Subtle peripheral emboli may be difficult to exclude. Right PIC line in superior vena cava. Heart and mediastinum are normal. Thorax is normal. There is a 10 mm nonobstructing calculus and a 3.5 cm simple cyst in the upper pole of the left kidney (partially visualized). IMPRESSION: 1. Severe bibasilar pneumonia. 2. Partially limited study due to motion and other factors. 3. No evidence of pulmonary embolus (although subtle peripheral emboli difficult to exclude). 4. There is a 10 mm nonobstructing left renal calculus. All CT scans at this facility use dose modulation, iterative reconstruction, and/or weight-based dosing when appropriate to reduce radiation dose to as low as reasonably achievable.
--- NOTE | 2016-02-12 07:04 | NUR ---
RESPIRATORY THERAPIST IN WITH PT - ASSESSING. DR PALMER AWARE OF KCL AT 3.1.
--- NOTE | 2016-02-12 07:45 | Progress Note ---
Subjective General Pt. admitted through ER by hospitalist for pneumonia with sepsis after being seen previously at clinic for developing URI. Condition worsed and started on Azithro+ Ceftrix for bilateral pneumonia w/ hypotension,tachy,brief afib converted w/ metoprolol, and now on cardizem + Levofed. NOTE Hx DVT previously when hospitalized for pneumonia. PMHx sig for MR and Seizure DO. Constitutional Fever, Sweats, Weakness, Malaise. Eyes Denies: Pain, Eyelid Inflammation, Redness. ENT Nasal Congestion, Mouth Swelling, Throat Pain. Denies: Nose Pain, Other ( drooling but may be usual). Respiratory Cough, SOB w/exertion. Denies: Hemoptysis, Sputum. Cardiovascular Other (tachy controlled now and af co). Genitourinary Incontinence. Musculoskeletal Denies: Other (?). Skin Denies: Rash. Neurological Confusion, Other (HX MR and nonverbal). Denies: Seizures. Physical Exam Vital Signs / I&Os Vital Signs Date Time Temp Pulse Resp B/P Pulse O2 O2 Flow FiO2 Ox Delivery Rate 02/11 0720 112 28 92/59 99 CPAP 100 02/11 0607 97.7 114 31 93/59 98 CPAP 100 02/11 0501 113 32 100/65 98 CPAP 100 / 0400 100.6 115 30 103/62 96 CPAP 100 / 0333 100.9 119 36 98/65 95 CPAP 100 / 0312 119 /05 0312 134 37 98/73 93 CPAP 100 / 0250 145 /05 0232 158 /05 0145 148 36 120/65 87 HIGH FLOW 40.0 NC 02/11 0129 40.0 02/11 0118 HIGH FLOW 40.0 NC / 0110 117 38 106/66 86 /05 0023 15.0 / 0017 134 32 117/66 88 15.0 Non-Rebreather Mask 02/11 0015 100.8 130 22 123/83 95 15.0 Non-Rebreather Mask 02/10 2340 101.5 02/10 2310 118 33 102/66 97 15.0 Non-Rebreather Mask 02/10 2228 101.5 02/10 2209 121 36 83/49 90 15.0 Non-Rebreather Mask 02/10 2105 125 35 81/48 94 15.0 Non-Rebreather Mask 02/11 2048 99.9 02/10 2007 15.0 Non-Rebreather Mask 02/10 2007 151 32 81/55 95 15.0 Non-Rebreather Mask 02/10 2006 15.0 02/10 1930 85/46 02/10 1911 132 17 86/46 93 15.0 Non-Rebreather Mask 02/10 1858 143 02/10 1820 15.0 02/10 1816 140 31 80/55 89 15.0 Non-Rebreather Mask 02/10 1756 90/55 02/10 1740 15.0 02/10 1730 85/63 02/10 1718 102.9 152 36 95/55 93 15.0 Non-Rebreather Mask 02/10 1606 15.0 I&O 02/10 0800 02/10 1600 02/11 0000 Intake Total 4300 Output Total 1230 Balance 3070 General Appearance Alert, Cooperative, Mild distress, Responsive and shook hand approp. HEENT PERRLA, EOMI, dry lips Lungs Shallow BS. Rales R>L Neck Supple, No JVD, No lymphadenopathy Cardiovascular Regular rate and rhythm, S Tachy at 108 Abdomen Soft, No tenderness, No guarding Skin No Rashes, No Breakdown Neurological No lateralizing signs, Severe MR and nonverbal Psych/Mental Status Confused, Appears alert and responsive. LAB Results Laboratory Tests 02/10 02/10 1045 1045 Chemistry Plasma Sodium (136 - 145 mmol/L) 142 Plasma Potassium (3.5 - 5.1 mmol/L) 3.3 Plasma Chloride (98 - 107 mmol/L) 107 CO2 (Enzymatic) (21 - 32 mmol/L) 25 BUN (7 - 18 mg/dL) 29 Creatinine (0.6 - 1.3 mg/dL) 0.9 Est GFR ( Amer) (mL/min) >60 Est GFR (Non-Af Amer) (mL/min) >60 Glucose (70 - 110 mg/dL) 97 Plasma Calcium (8.5 - 10.1 mg/dL) 9.3 Total Bilirubin (0.0 - 1.0 mg/dL) 0.3 AST (15 - 37 U/L) 30 ALT (12 - 78 U/L) 55 Alkaline Phosphatase (46 - 116 U/L) 95 Total Protein (6.4 - 8.2 g/dL) 7.0 Albumin (3.3 - 5.0 g/dL) 3.9 Procalcitonin (0 - 0.5 ng/mL) <0.5 Hematology WBC (4.5 - 11.5 K/uL) 18.5 RBC (4.50 - 5.90 M/uL) 4.88 Hgb (13.5 - 17.5 gm/dL) 14.3 Hct (41.0 - 53.0 %) 44.0 MCV (80 - 100 fL) 90 MCH (26 - 34 pg) 29 RDW (11.6 - 14.8 %) 13.1 Neut % (Auto) (50 - 75 %) 49 Lymph % (Auto) (25 - 40 %) 13 Finney % (Auto) (3 - 14 %) 10 Eos % (Auto) (0 - 4 %) 0 Baso % (Auto) (0 - 2 %) 0 Band Neutrophils % (0 - 8 %) 28 Metamyelocytes % (0 - 1 %) 0 Myelocytes (0 - 1 %) 0 Other Cell Type 0 Plt Count, EDTA (150 - 400 K/uL) 244 RBC Morphology NORMAL MORPHOLOGY PUBS MCHC (31 - 37 g/dL) 33 02/10 02/10 02/10 02/10 1145 1300 1640 1732 Blood Gas Sample Site LR Total CO2 (24.0 - 30.0 mmol/L) 23.2 ABG pH (7.35 - 7.45) 7.41 ABG pCO2 at Pt Temp (35 - 45 mmHg) 34.7 ABG pO2 at Pt Temp (80.0 - 100.0 mmHg) 62.3 ABG HCO3 (20.0 - 26.0 mmol/L) 22.1 ABG O2 Sat Calc/Chrissy (95.1 - 100.0 %) 93.4 ABG Base Excess (-6.0 - -6.0 mmol/L) -2.2 ABG Reduced Hgb (%) 6.5 ABG Carboxyhemoglobin (0.5 - 1.5 %) 1.1 ABG Methemoglobin (0.4 - 1.5 %) 0.0 Lucas Test YES Other Total Hgb (14.0 - 18.0 g/dL) 13.1 A-a O2 Gradient (7.0 - 14.0 mmHg) 619.4 Hgb O2 Saturation (95.0 - 100.0 %) 92.4 O2 Liters/Min (0 - 20 L/MIN) 15 Vent Mode NRB FiO2 (20 - 101 %) 100 Chemistry Lactic Acid (0.4 - 2.0 mmol/L) 0.6 2.2 Urines Urine Color YELLOW Urine Appearance SL CLOUDY Urine pH (5.0 - 8.0) 5.5 Ur Specific [place] (1.010 - 1.030) >= 1.030 Urine Protein (NEGATIVE) 1+ Urine Ketones (NEGATIVE) 1+ Urine Blood (NEGATIVE) NEGATIVE Urine Nitrite (NEGATIVE) NEGATIVE Urine Bilirubin (NEGATIVE) NEGATIVE Urine Urobilinogen (0.2 - 1.0 EU/dL) 0.2 Ur Leukocyte Esterase (NEGATIVE) TRACE Urine RBC (0 - 1 rbc/hpf) NONE SEEN Urine WBC (0 - 1 wbc/hpf) 25-50 Ur Epithelial Cells (0 - 5 EPI/hpf) 3-5 Urine Bacteria (NONE SEEN) MODERATE (2+ TO 3+) Urine Glucose (NEGATIVE) NEGATIVE Urine Comment CULTURE INDICATED 02/10 02/10 02/10 1735 1740 1740 Blood Gas Total CO2 Cancelled ABG pH Cancelled ABG pCO2 at Pt Temp Cancelled ABG pO2 at Pt Temp Cancelled ABG HCO3 Cancelled ABG O2 Sat Calc/Chrissy Cancelled ABG Base Excess Cancelled ABG Reduced Hgb Cancelled ABG Carboxyhemoglobin Cancelled ABG Methemoglobin Cancelled Lucas Test Cancelled Other Total Hgb Cancelled Hgb O2 Saturation Cancelled FiO2 Cancelled Chemistry Plasma Sodium (136 - 145 mmol/L) 146 Plasma Potassium (3.5 - 5.1 mmol/L) 3.6 Plasma Chloride (98 - 107 mmol/L) 113 CO2 (Enzymatic) (21 - 32 mmol/L) 24 BUN (7 - 18 mg/dL) 20 Creatinine (0.6 - 1.3 mg/dL) 0.9 Est GFR ( Amer) (mL/min) >60 Est GFR (Non-Af Amer) (mL/min) >60 Glucose (70 - 110 mg/dL) 110 Plasma Calcium (8.5 - 10.1 mg/dL) 8.0 Plasma Magnesium (1.8 - 2.4 mg/dL) 1.4 Procalcitonin (0 - 0.5 ng/mL) 0.3 Coagulation INR (0.8 - 1.2) 1.3 APTT (24 - 34 SECONDS) 33 D-Dimer, Quantitative (0.27 - 0.52 ug/mLFEU) 1.47 02/11 02/11 02/11 02/11 [facility] 0405 0405 0405 Blood Gas Sample Site LR Total CO2 (24.0 - 30.0 mmol/L) 23.7 ABG pH (7.35 - 7.45) 7.42 ABG pCO2 at Pt Temp (35 - 45 mmHg) 34.9 ABG pO2 at Pt Temp (80.0 - 100.0 mmHg) 72.5 ABG HCO3 (20.0 - 26.0 mmol/L) 22.6 ABG O2 Sat Calc/Chrissy (95.1 - 100.0 %) 96.4 ABG Base Excess (-6.0 - -6.0 mmol/L) -1.5 ABG Reduced Hgb (%) 3.6 ABG Carboxyhemoglobin (0.5 - 1.5 %) 1.1 ABG Methemoglobin (0.4 - 1.5 %) 0.0 Lucas Test NO Other Total Hgb (14.0 - 18.0 g/dL) 14.6 A-a O2 Gradient (7.0 - 14.0 mmHg) 609.9 Hgb O2 Saturation (95.0 - 100.0 %) 95.3 Respiration Rate (/MIN) 36 Vent Mode CPAP FiO2 (20 - 101 %) 100 Tidal Volume (cc) 350 PEEP (cmH2O) 16 Blood Gas Comments CPAP 16@ 100% Chemistry Plasma Sodium (136 - 145 mmol/L) 148 Plasma Potassium (3.5 - 5.1 mmol/L) 3.1 Plasma Chloride (98 - 107 mmol/L) 112 CO2 (Enzymatic) (21 - 32 mmol/L) 26 BUN (7 - 18 mg/dL) 11 Creatinine (0.6 - 1.3 mg/dL) 0.7 Est GFR ( Amer) (mL/min) >60 Est GFR (Non-Af Amer) (mL/min) >60 Glucose (70 - 110 mg/dL) 131 Lactic Acid (0.4 - 2.0 mmol/L) 1.1 Plasma Calcium (8.5 - 10.1 mg/dL) 8.0 Plasma Magnesium (1.8 - 2.4 mg/dL) 1.5 Total Bilirubin (0.0 - 1.0 mg/dL) 0.5 AST (15 - 37 U/L) 66 ALT (12 - 78 U/L) 63 Alkaline Phosphatase (46 - 116 U/L) 80 B-Natriuretic Peptide (5 - 100 pg/ml) 155 Total Protein (6.4 - 8.2 g/dL) 5.6 Albumin (3.3 - 5.0 g/dL) 3.0 Coagulation INR (0.8 - 1.2) 1.3 Hematology WBC (4.5 - 11.5 K/uL) 18.7 RBC (4.50 - 5.90 M/uL) 4.77 Hgb (13.5 - 17.5 gm/dL) 14.1 Hct (41.0 - 53.0 %) 43.1 MCV (80 - 100 fL) 90 MCH (26 - 34 pg) 30 RDW (11.6 - 14.8 %) 13.7 Neut % (Auto) (50 - 75 %) 55 Lymph % (Auto) (25 - 40 %) 10 Finney % (Auto) (3 - 14 %) 6 Eos % (Auto) (0 - 4 %) 0 Baso % (Auto) (0 - 2 %) 0 Band Neutrophils % (0 - 8 %) 29 Metamyelocytes % (0 - 1 %) 0 Myelocytes (0 - 1 %) 0 Other Cell Type 0 Plt Count, EDTA (150 - 400 K/uL) 203 PUBS MCHC (31 - 37 g/dL) 33 Microbiology Date/Time Procedure - Status Source Growth 02/10 1815 Respiratory Culture - RES SPUTUM 02/10 1815 Culture and Gram Stain - RES SPUTUM 02/10 1730 MRSA Screen - RECD NASAL 02/10 1310 Respiratory Syncytial Virus Ag Scrn - COMP NASALPHAR 02/10 1310 Influenza Screen - COMP NASALPHAR 02/10 1309 Blood Culture - RECD BLOOD 02/10 1300 Blood Culture - RECD BLOOD 02/10 1145 Urine Culture - RECD URINE CC Assessment and Plan Problem List 1. Pneumonia Plan azithro + Ceftriax. RT. Consider Biofire 2. Hypoxia Plan O2 mask and improved 3. Hypotension Plan On Levofed drip. Hospitalist to manage 4. UTI (urinary tract infection) Plan Probably Chronic 5. Seizure disorder 6. Sepsis Plan On fluids, abc, levofed 7. Hypotension 8. Atrial fibrillation Plan converted quickly after 1 dose Metoprolol. Remains on Cardizem IV E&M Codes Rounding: Inpt-Moderate/11770
--- NOTE | 2016-02-12 11:04 | Progress Note ---
Subjective General Note Date: February 12, 2016 Admission Date: February 11, 2016 Hospital Day: 2 PCP: Palmer Cortez M.D. Status: Inpatient Advanced Directive: FULL CODE Room: 305 Brief History: The patient is a 35-year-old single white male with a significant past make a history of autism/developmental delay, seizure disorder, history of DVTs, recurrent UTI, asthma, who presented to [facility] emergency department on the day of admission secondary to complaints of shortness of breath and difficulty breathing. [facility] ER evaluation was consistent with bibasilar pneumonia, UTI, possible sepsis. Secondary to the above, Dr. Palmer Cortez (patient's PCP) was contacted and he requested the patient be admitted by the hospitalist service. Secondary to the above, the patient was admitted by Ollie rPatt M.D. for further evaluation and treatment. For other history present illness, past medical history, family history, social history, review of systems, and admission physical examination please see the patient's history and physical examination and ER visit note in the patient's medical record. Subjective: The patient is awake and alert. Not interactive. Aware of surroundings. Patient requests: None Medications and Allergies Medications Current Medications Sig/Daniel Start time Last Medication Dose Route Stop Time Status Admin Magnesium Sulfate 50 ML 1100 02/11 1100 AC IV 02/11 1300 Potassium Chloride/ 100 ML 1100 02/11 1100 AC Water IV 02/11 1300 Levetiracetam 1,000 MG BID 02/11 0900 AC 02/11 Sodium Chloride 100 ML IV 1036 Pantoprazole Sodium 40 MG DAILY@0600 02/11 0600 AC 02/11 IV 0605 Diltiazem/Dextrose 125 ML ASDIRECTED 02/11 0315 AC 02/11 IV 0310 Metoprolol Tartrate 5 MG Q6HR PRN 02/11 0045 AC 02/11 IV 0240 Norepinephrine 4 MG ASDIRECTED 02/10 2330 AC 02/11 Bitartrate IV 0515 Dextrose/Water 250 ML Heparin Sodium 5,000 UNITS Q8HR 02/10 2200 AC 02/11 (Porcine) SC 0605 Levofloxacin/Dextrose 150 ML DAILY 02/10 1900 AC 02/10 IV 1900 Ertapenem 1,000 MG DAILY@1400 02/10 1830 AC 02/10 Sodium Chloride 50 ML IV 1823 Acetaminophen 650 MG Q4H PRN 02/10 1730 AC 02/10 W[place] 1807 Al Hydrox/Mg Hydrox/ 15 ML Q1H PRN 02/10 1730 AC Simethicone PO Albuterol Sulfate 2.5 MG Q3H PRN 02/10 1730 AC 02/11 IN 0128 Atropine Sulfate 0.5 MG Q3MIN PRN 02/10 1730 AC IV Ipratropium [place] 0.5 MG Q6H PRN 02/10 1730 AC 02/11 IN 0129 Lidocaine HCl See Dose ONCE PRN 02/10 1730 AC Insts (1) IV Magnesium Hydroxide 10 ML DAILY PRN 02/10 1730 AC PO Nitroglycerin 0.4 MG Q5M PRN 02/10 1730 AC SL Ondansetron HCl 4 MG Q6H PRN 02/10 173 AC IV Sodium Chloride 1,000 ML ASDIRECTED 02/10 173 AC 02/11 IV 0203 Dose Instructions: (1)Lidocaine HCl: 1.5 MG/KG Allergies Coded Allergies: Morphine (Severe, Seizures 02/12/16) Penicillins (Severe, HIVES 02/12/16) Sulfa Drugs (Severe, HIVES 02/12/16) Physical Exam Vital Signs / I&Os Vital Signs Date Time Temp Pulse Resp B/P Pulse O2 O2 Flow FiO2 Ox Delivery Rate 02/11 1000 98.6 103 26 97/62 96 CPAP 15.0 02/11 0913 103 23 100/61 97 CPAP 100 02/11 0800 107 28 98/62 97 CPAP 100 02/11 0749 15.0 02/11 0720 112 28 92/59 99 CPAP 100 02/11 0607 97.7 114 31 93/59 98 CPAP 100 02/11 0501 113 32 100/65 98 CPAP 100 / 0400 100.6 115 30 103/62 96 CPAP 100 / 0333 100.9 119 36 98/65 95 CPAP 100 02/11 0312 119 / 0312 134 37 98/73 93 CPAP 100 02/11 0250 145 02/11 0232 158 / 0145 148 36 120/65 87 HIGH FLOW 40.0 NC 02/11 0129 40.0 02/11 0118 HIGH FLOW 40.0 NC 02/11 0110 117 38 106/66 86 /05 0023 15.0 02/11 0017 134 32 117/66 88 15.0 Non-Rebreather Mask 02/11 0015 100.8 130 22 123/83 95 15.0 Non-Rebreather Mask 02/10 2340 101.5 02/10 2310 118 33 102/66 97 15.0 Non-Rebreather Mask 02/10 2228 101.5 02/10 2209 121 36 83/49 90 15.0 Non-Rebreather Mask 02/10 2105 125 35 81/48 94 15.0 Non-Rebreather Mask 02/10 2049 99.9 02/10 2007 15.0 Non-Rebreather Mask 02/10 2007 151 32 81/55 95 15.0 Non-Rebreather Mask 02/10 2007 15.0 02/10 1930 85/46 02/10 1911 132 17 86/46 93 15.0 Non-Rebreather Mask 02/10 1858 143 02/10 1820 15.0 02/10 1816 140 31 80/55 89 15.0 Non-Rebreather Mask 02/10 1756 90/55 04 1740 15.0 02/10 1730 85/63 02/10 1718 102.9 152 36 95/55 93 15.0 Non-Rebreather Mask 02/10 1606 15.0 I&O 02/11 0000 02/10 1600 02/10 0800 Intake Total 4300 Output Total 1230 Balance 3070 General Appearance Alert, Mild distress HEENT EOMI Lungs Decreased breath sounds bilateral bases with bronchial breath sounds. Diffuse rhonchi. Neck Supple Cardiovascular Regular rate and rhythm, Normal S1 and S2, tachycardic Abdomen Normal bowel sounds, Soft, No tenderness Extremities No cyanosis, No clubbing, No edema Neurological Cranial nerves intact, No lateralizing signs Psych/Mental Status alert but noncommunicative LAB Results Laboratory Tests 02/11 02/11 02/11 02/11 02/10 0405 0405 0405 UNK 1740 Blood Gas Sample Site LR Total CO2 (24.0 - 30.0 mmol/L) 23.7 ABG pH (7.35 - 7.45) 7.42 ABG pCO2 at Pt Temp (35 - 45 mmHg) 34.9 ABG pO2 at Pt Temp (80.0 - 100.0 mmHg) 72.5 ABG HCO3 (20.0 - 26.0 mmol/L) 22.6 ABG O2 Sat Calc/Chrissy (95.1 - 100.0 %) 96.4 ABG Base Excess (-6.0 - -6.0 mmol/L) -1.5 ABG Reduced Hgb (%) 3.6 ABG Carboxyhemoglobin (0.5 - 1.5 %) 1.1 ABG Methemoglobin (0.4 - 1.5 %) 0.0 Lucas Test NO Other Total Hgb (14.0 - 18.0 g/dL) 14.6 A-a O2 Gradient (7.0 - 14.0 mmHg) 609.9 Hgb O2 Saturation (95.0 - 100.0 %) 95.3 Respiration Rate (/MIN) 36 Vent Mode CPAP FiO2 (20 - 101 %) 100 Tidal Volume (cc) 350 PEEP (cmH2O) 16 Blood Gas Comments CPAP 16@ 100% Chemistry Plasma Sodium (136 - 145 mmol/L) 148 Plasma Potassium (3.5 - 5.1 mmol/L) 3.1 Plasma Chloride (98 - 107 mmol/L) 112 CO2 (Enzymatic) (21 - 32 mmol/L) 26 BUN (7 - 18 mg/dL) 11 Creatinine (0.6 - 1.3 mg/dL) 0.7 Est GFR ( Amer) (mL/min) >60 Est GFR (Non-Af Amer) (mL/min) >60 Glucose (70 - 110 mg/dL) 131 Lactic Acid (0.4 - 2.0 mmol/L) 1.1 Plasma Calcium (8.5 - 10.1 mg/dL) 8.0 Plasma Magnesium (1.8 - 2.4 mg/dL) 1.5 Total Bilirubin (0.0 - 1.0 mg/dL) 0.5 AST (15 - 37 U/L) 66 ALT (12 - 78 U/L) 63 Alkaline Phosphatase (46 - 116 U/L) 80 B-Natriuretic Peptide (5 - 100 pg/ml) 155 Total Protein (6.4 - 8.2 g/dL) 5.6 Albumin (3.3 - 5.0 g/dL) 3.0 Procalcitonin (0 - 0.5 ng/mL) 0.3 Coagulation INR (0.8 - 1.2) 1.3 Hematology WBC (4.5 - 11.5 K/uL) 18.7 RBC (4.50 - 5.90 M/uL) 4.77 Hgb (13.5 - 17.5 gm/dL) 14.1 Hct (41.0 - 53.0 %) 43.1 MCV (80 - 100 fL) 90 MCH (26 - 34 pg) 30 RDW (11.6 - 14.8 %) 13.7 Neut % (Auto) (50 - 75 %) 55 Lymph % (Auto) (25 - 40 %) 10 [place] % (Auto) (3 - 14 %) 6 Eos % (Auto) (0 - 4 %) 0 Baso % (Auto) (0 - 2 %) 0 Band Neutrophils % (0 - 8 %) 29 Metamyelocytes % (0 - 1 %) 0 Myelocytes (0 - 1 %) 0 Other Cell Type 0 Plt Count, EDTA (150 - 400 K/uL) 203 PUBS MCHC (31 - 37 g/dL) 33 02/10 02/10 02/10 02/10 1740 1735 1732 1640 Blood Gas Sample Site LR Total CO2 (24.0 - 30.0 mmol/L) Cancelled 23.2 ABG pH (7.35 - 7.45) Cancelled 7.41 ABG pCO2 at Pt Temp (35 - 45 mmHg) Cancelled 34.7 ABG pO2 at Pt Temp (80.0 - 100.0 mmHg) Cancelled 62.3 ABG HCO3 (20.0 - 26.0 mmol/L) Cancelled 22.1 ABG O2 Sat Calc/Chrissy (95.1 - 100.0 %) Cancelled 93.4 ABG Base Excess (-6.0 - -6.0 mmol/L) Cancelled -2.2 ABG Reduced Hgb (%) Cancelled 6.5 ABG Carboxyhemoglobin (0.5 - 1.5 %) Cancelled 1.1 ABG Methemoglobin (0.4 - 1.5 %) Cancelled 0.0 Lucas Test Cancelled YES Other Total Hgb (14.0 - 18.0 g/dL) Cancelled 13.1 A-a O2 Gradient (7.0 - 14.0 mmHg) 619.4 Hgb O2 Saturation (95.0 - 100.0 %) Cancelled 92.4 O2 Liters/Min (0 - 20 L/MIN) 15 Vent Mode NRB FiO2 (20 - 101 %) Cancelled 100 Chemistry Plasma Sodium (136 - 145 mmol/L) 146 Plasma Potassium (3.5 - 5.1 mmol/L) 3.6 Plasma Chloride (98 - 107 mmol/L) 113 CO2 (Enzymatic) (21 - 32 mmol/L) 24 BUN (7 - 18 mg/dL) 20 Creatinine (0.6 - 1.3 mg/dL) 0.9 Est GFR ( Amer) (mL/min) >60 Est GFR (Non-Af Amer) (mL/min) >60 Glucose (70 - 110 mg/dL) 110 Lactic Acid (0.4 - 2.0 mmol/L) 2.2 Plasma Calcium (8.5 - 10.1 mg/dL) 8.0 Plasma Magnesium (1.8 - 2.4 mg/dL) 1.4 Coagulation INR (0.8 - 1.2) 1.3 APTT (24 - 34 SECONDS) 33 D-Dimer, Quantitative (0.27 - 0.52 ug/mLFEU) 1.47 02/10 02/10 1300 1145 Chemistry Lactic Acid (0.4 - 2.0 mmol/L) 0.6 Urines Urine Color YELLOW Urine Appearance SL CLOUDY Urine pH (5.0 - 8.0) 5.5 Ur Specific [place] (1.010 - 1.030) >= 1.030 Urine Protein (NEGATIVE) 1+ Urine Ketones (NEGATIVE) 1+ Urine Blood (NEGATIVE) NEGATIVE Urine Nitrite (NEGATIVE) NEGATIVE Urine Bilirubin (NEGATIVE) NEGATIVE Urine Urobilinogen (0.2 - 1.0 EU/dL) 0.2 Ur Leukocyte Esterase (NEGATIVE) TRACE Urine RBC (0 - 1 rbc/hpf) NONE SEEN Urine WBC (0 - 1 wbc/hpf) 25-50 Ur Epithelial Cells (0 - 5 EPI/hpf) 3-5 Urine Bacteria (NONE SEEN) MODERATE (2+ TO 3+) Urine Glucose (NEGATIVE) NEGATIVE Urine Comment CULTURE INDICATED Microbiology Date/Time Procedure - Status Source Growth 02/10 181 Respiratory Culture - RES SPUTUM 02/10 181 Culture and Gram Stain - RES SPUTUM 02/10 1730 MRSA Screen - RECD NASAL 02/10 1310 Respiratory Syncytial Virus Ag Scrn - COMP NASALPHAR 02/10 1310 Influenza Screen - COMP NASALPHAR 02/10 1309 Blood Culture - RECD BLOOD 02/10 1300 Blood Culture - RECD BLOOD 02/10 1145 Urine Culture - RECD URINE CC Assessment and Plan Problem List 1. Pneumonia Plan -Persistent hypoxemia -Persistent leukocytosis, fever -Sputum C&S pending -Gram stain of sputum shows gram-positive cocci -Continue vancomycin, ertapenem, Levaquin until cultures are available 2. UTI (urinary tract infection) Plan -Urine C&S pending -Continue antimicrobials as noted above 3. Seizure disorder Plan -Stable -Continue IV -Monitor 4. Hypotension Plan -Patient remains on pressure support in the form of Levophed -Blood pressure trending improved -Good urinary output -No signs of peripheral hypoperfusion 5. Sepsis Plan -See above -Lactic acid level normalized today -Continue fluid support/pressor support as necessary -Continue antimicrobials as noted above -Status stable to slightly improved 6. Atrial fibrillation Plan -Patient with episode of atrial fibrillation -Patient converted to normal sinus rhythm -Cardizem drip discontinued -Monitor -Echocardiogram Current status: Critical, unstable Anticipated discharge date: Anticipated discharge 5 days Anticipated discharge placement: Home versus [facility] facility Patient care time: Time spent in chart review, patient interview, physical exam, CPOE, and care documentation: 35 minutes Visit to patient today: 2 Complexity of care: High E&M Codes Rounding: Inpt-High/[id number]
--- NOTE | 2016-02-12 11:13 | NUR ---
Pharmacy to dose Vancomycin for PNA/Sepsis. Loading dose 2000 mg then 1500 mg IV q8hrs. Will check early trough tomorrow at 1130. Steady state trough predicted ~14. Pharmacy will follow. radha
--- NOTE | 2016-02-12 15:06 | NUR ---
NUTRITION ASSESSMENT: S: Pt admitted with PNA, sepsis, UTI. PMH includes developmental delay, autism, seizure disored, hx/o DVTs, recurretn UTIs. Pt is currently NPO. Spoke with nursing today, states pts mom said "he doesnt chew, only swallows" his food. Suggested pt be seen by swallow therapist. Per old admisison records, pt did well with drinkable puree foods and items. O: Diet Rx: NPO NKFA Wts: 79.9 kg Ht: 70" IBW: 67-77 kg BMI: 26 Wt Feb 2015: 78.8 kg Sep 2014 80.1 kg Est Kcals: 1321-1108 kcals per day Est Pro: 75-85 g per day Est Fluids: ~per MD Labs Incl: (02/11) glucose 131, BUN 11, creat 0.7, Na+ 148, K+ 3.1, mag 1.5, Ca+ 8.0, total pro 5.6, albumin 3.0, AST 66, ALT 63, HGB 14.1, HCT 43.1, MCV 90, MCH 30 Skin: Rodrigo Score 14; waffle overlay in place A: Pt currently NPO at this time. Suggest drinkable puree foods if ok with MD and pts mom who takes care of him, suggested swallow eval. No sign changes in wts since other admisions. Rev'd meds and labs. Skin fragile. P: 1. Drinkable pureed diet with mighty shakes, protein powder and boost between meals. 2. Swallow evaluation?
--- NOTE | 2016-02-12 19:30 | NUR ---
SHIFT SUMMARY: PT HAS BEEN AWAKE ALL SHIFT, HE FOLLOWS WITH HIS EYES, BUT IS NON VERBAL NOR DOES HE MAKE ANY SOUNDS. HE DOES FLINCH WHEN POKED, AND DRAWS AWAY FROM PAIN. BREATH SOUNDS CONTINUE TO BE COARSE WITH RHONCI. PT'S RESP SUPPORT HAS BEEN ABLE TO BE DECREASED FIRST FROM BIPAP, TO 100%NRB MASK AND THEN TO A OXYMASK AT 11L, WITH HIS SATS MAINTAINING > 92%. HE HAD VANCOMYCIN ADDEDD TO HIS ANTIBIOTIC REGIME AND HE HAD KCL AND MAGNESIUM RIDERS TODAY. HIS PICC LINE IN HIS AZAM REMAINS PATENT. PT WAS TURNED Q2H, BUT HE APPARENTLY DOES NOT LIKE TO BE ROLLED ONTO HIS SIDES HE QUICKLY SCOOTS HINSELF TO HIS BACK AGAIN. HIS SKIN LOOKS GOOD AND IS INTACT. URINE HAS CLEARED TODAY FROM GORDON THIS AM TO PALE YELLOW THIS DARIAN. REPORT GIVEN TO LIBORIO
--- NOTE | 2016-02-12 22:59 | NUR ---
PT ON 11L VIA OXIMASK AT 1900. O2 SAT 90'S. AT 2230, PT DESAT INTO THE 70'S, 100% NONREBREATHER MASK APPLIED, RT NOTIFIED. PT'S LIPS WERE BLUE/DUSKY AND HE WAS TACHYPNIC WITH BELLY BREATHING. PT WAS ALSO HAVING A LARGE BM. WHEN O2 SAT WAS UP TO 88%, PT WAS GIVEN CATH CARE AND BOB CARE. AFTER BED CHANGE, RT NT SUCTIONED PT TWICE AND WAS BLE TO GET COPIOUS AMOUNTS OF THICK BEIGE SPUTUM OUT. PT REMAINS ON 100% NONREBREATHER MASK AT THIS TIME AND 02 SAT IS 94%. HR 115, BP STABLE ON LEVOPHED GTT @ 2MCG/MIN AT THIS TIME. RR IS 35, CVP IS 8. TELE SHOWS NSR/ST AT THIS TIME. WILL CONTINUE TO MONITOR.
[2016-02-13] VITALS (25 sets, daily range): BP systolic 87–160; BP diastolic 41–81
--- NOTE | 2016-02-13 00:44 | NUR ---
PT O2 SAT DROPPED TO 85% ON NRB MASK AND HR IS 120'S. TEMP IS 100.5 AX RT NOTIFIED, PT PUT ON BIPAP. FIO2 70%, RATE 16. TYLENOL 650MG SUPP GIVEN. PT IS OVERBREATHING THE BIPAP - RR IS 40-50, HR IS 130. WILL CONTINUE TO MONITOR. O2 SAT ON BIPAP MASK IS 97%.
--- NOTE | 2016-02-13 07:23 | Progress Note ---
Subjective General Nonverbal Physical Exam Vital Signs / I&Os Vital Signs Date Time Temp Pulse Resp B/P Pulse O2 O2 Flow FiO2 Ox Delivery Rate 02/12 0714 106 14 90/55 93 Bipap 75 02/12 0626 100.2 111 33 91/52 91 Bipap 75 02/12 0505 100.2 / 0500 110 28 95/59 93 Bipap 75 / 0400 102 26 90/57 98 /06 0300 101.8 119 29 94/56 95 Bipap 75 02/12 0200 97/59 /06 0154 100.6 /06 0116 109 35 98/61 92 Bipap 75 02/12 0049 101.5 121 42 110/73 96 Bipap 02/11 2323 117 27 118/80 95 12.0 Non-Rebreather Mask 02/11 2215 114 36 106/63 92 100 Non-Rebreather Mask 02/11 2105 106 28 101/58 93 VentI-Mask 12.0 02/11 2032 12.0 02/11 2005 110 29 104/59 93 VentI-Mask 12.0 02/11 2000 Mask 11.0 02/11 1910 108 23 102/63 93 VentI-Mask 12.0 / 1805 97.5 106 29 100/57 93 VentI-Mask 12.0 / 1705 106 30 102/64 93 VentI-Mask 12.0 / 1613 101 30 97/61 94 VentI-Mask 12.0 /05 1504 100 28 98/59 94 VentI-Mask 12.0 /05 1408 95/54 /05 1406 98.2 101 26 92 VentI-Mask 12.0 / 1358 11.0 /05 1211 101 24 92/55 94 CPAP 14.0 /05 1141 94 24 96/62 96 15.0 Non-Rebreather Mask /05 1000 98.6 103 26 97/62 96 CPAP 15.0 /05 0913 103 23 100/61 97 CPAP 100 / 0830 15.0 Non-Rebreather Mask 02/11 0800 107 28 98/62 97 CPAP 100 /05 0749 15.0 / 0720 112 28 92/59 99 CPAP 100 I&O 02/11 0800 / 1600 02/12 0000 Intake Total 3443 227 0 Output Total 3580 1530 1575 Balance -137 -1303 -1575 General Appearance Alert (arousable and appropriate w/ M), Mild distress HEENT Normal exam (Mask on) Lungs Diminished BS and rales bilat Abdomen No tenderness, No guarding Neurological No lateralizing signs Psych/Mental Status Confused, Devel delay LAB Results Laboratory Tests 02/12 0525 Chemistry Plasma Sodium Pending Plasma Potassium Pending Plasma Chloride Pending CO2 (Enzymatic) Pending BUN Pending Creatinine Pending Est GFR ( Amer) Pending Est GFR (Non-Af Amer) Pending Glucose Pending Plasma Calcium Pending Plasma Magnesium Pending Total Bilirubin Pending AST Pending ALT Pending Alkaline Phosphatase Pending Total Protein Pending Albumin Pending Hematology WBC (4.5 - 11.5 K/uL) 11.2 RBC (4.50 - 5.90 M/uL) 3.89 Hgb (13.5 - 17.5 gm/dL) 11.5 Hct (41.0 - 53.0 %) 35.3 MCV (80 - 100 fL) 91 MCH (26 - 34 pg) 30 RDW (11.6 - 14.8 %) 13.7 Neut % (Auto) (50 - 75 %) Pending Lymph % (Auto) (25 - 40 %) Pending [place] % (Auto) (3 - 14 %) Pending Band Neutrophils % (0 - 8 %) Pending Plt Count, EDTA (150 - 400 K/uL) 179 PUBS MCHC (31 - 37 g/dL) 33 Assessment and Plan Problem List 1. Pneumonia Plan WBC improved. Cultures pending. ICU care per hospitalist. 2. UTI (urinary tract infection) 3. Hypotension 4. Seizure disorder
--- NOTE | 2016-02-13 08:01 | Progress Note ---
Subjective General Note Date: February 13, 2016 Admission Date: February 11, 2016 Hospital Day: 3 PCP: Palmer Cortez M.D. Status: Inpatient Advanced Directive: FULL CODE Room: 305 Brief History: The patient is a 35-year-old single white male with a significant past make a history of autism/developmental delay, seizure disorder, history of DVTs, recurrent UTI, asthma, who presented to [facility] emergency department on the day of admission secondary to complaints of shortness of breath and difficulty breathing. [facility] ER evaluation was consistent with bibasilar pneumonia, UTI, possible sepsis. Secondary to the above, Dr. Palmer Cortez (patient's PCP) was contacted and he requested the patient be admitted by the hospitalist service. Secondary to the above, the patient was admitted by Ollie Pratt M.D. for further evaluation and treatment. For other history present illness, past medical history, family history, social history, review of systems, and admission physical examination please see the patient's history and physical examination and ER visit note in the patient's medical record. Subjective: The patient is awake and alert. Not interactive. Aware of surroundings. Patient requests: None Medications and Allergies Medications Current Medications Sig/Daniel Start time Last Medication Dose Route Stop Time Status Admin Clarify Med Order See Dose 1130 02/12 1130 AC Insts (1) IV 02/12 1131 Vancomycin HCl 1,500 MG 0400,1200,2000 02/11 2000 AC 02/12 Sodium Chloride 500 ML IV 0406 Vancomycin HCl/ 200 ML .[PER PHARMACY] 02/11 1100 CAN Dextrose IV Levetiracetam 1,000 MG BID 02/11 0900 02/11 Sodium Chloride 100 ML IV 2118 Pantoprazole Sodium 40 MG DAILY@0600 02/11 0600 AC 02/12 IV 0505 Diltiazem/Dextrose 125 ML ASDIRECTED 02/11 0315 AC 02/11 IV 0310 Metoprolol Tartrate 5 MG Q6HR PRN 02/11 0045 AC 02/12 IV 0101 Norepinephrine 4 MG ASDIRECTED 02/10 2330 AC 02/11 Bitartrate IV 1719 Dextrose/Water 250 ML Heparin Sodium 5,000 UNITS Q8HR 02/10 2200 AC 02/12 (Porcine) SC 0506 Levofloxacin/Dextrose 150 ML DAILY 02/10 1900 AC 01/05 IV 1139 Ertapenem 1,000 MG DAILY@1400 02/10 1830 AC 02/11 Sodium Chloride 50 ML IV 1347 Acetaminophen 650 MG Q4H PRN 02/10 1730 AC 02/12 [place] 0433 Al Hydrox/Mg Hydrox/ 15 ML Q1H PRN 02/10 1730 AC Simethicone PO Albuterol Sulfate 2.5 MG Q3H PRN 02/10 1730 AC 02/11 IN 0128 Atropine Sulfate 0.5 MG Q3MIN PRN 02/10 173 AC IV Ipratropium [place] 0.5 MG Q6H PRN 02/10 1730 AC 02/11 IN 0129 Lidocaine HCl See Dose ONCE PRN 02/10 1730 AC Insts (2) IV Magnesium Hydroxide 10 ML DAILY PRN 02/10 173 AC PO Nitroglycerin 0.4 MG Q5M PRN 02/10 173 AC SL Ondansetron HCl 4 MG Q6H PRN 02/10 1730 AC IV Sodium Chloride 1,000 ML ASDIRECTED 02/10 173 AC 02/12 IV 0642 Dose Instructions: (1)Clarify Med Order: VANCOMYCIN TROUGH (2)Lidocaine HCl: 1.5 MG/KG Allergies Coded Allergies: Morphine (Severe, Seizures 02/12/16) Penicillins (Severe, HIVES 02/12/16) Sulfa Drugs (Severe, HIVES 02/12/16) Physical Exam Vital Signs / I&Os Vital Signs Date Time Temp Pulse Resp B/P Pulse O2 O2 Flow FiO2 Ox Delivery Rate 02/12 0714 106 14 90/55 93 Bipap 75 02/12 0626 100.2 111 33 91/52 91 Bipap 75 02/12 0505 100.2 02/12 0500 110 28 95/59 93 Bipap 75 02/12 0400 102 26 90/57 98 02/12 0300 101.8 119 29 94/56 95 Bipap 75 02/12 0200 97/59 02/12 0154 100.6 02/12 0116 109 35 98/61 92 Bipap 75 02/12 0049 101.5 121 42 110/73 96 Bipap 02/11 2323 117 27 118/80 95 12.0 Non-Rebreather Mask 02/11 2214 114 36 106/63 92 100 Non-Rebreather Mask 02/12 2104 106 28 101/58 93 VentI-Mask 12.0 02/112 12.0 02/12 2004 110 29 104/59 93 VentI-Mask 12.0 02/11 2000 Mask 11.0 02/11 1910 108 23 102/63 93 VentI-Mask 12.0 02/11 1805 97.5 106 29 100/57 93 VentI-Mask 12.0 02/11 1705 106 30 102/64 93 VentI-Mask 12.0 02/11 1613 101 30 97/61 94 VentI-Mask 12.0 02/11 1504 100 28 98/59 94 VentI-Mask 12.0 02/11 1408 95/54 02/11 1406 98.2 101 26 92 VentI-Mask 12.0 02/11 1358 11.0 02/11 1211 101 24 92/55 94 CPAP 14.0 02/11 1141 94 24 96/62 96 15.0 Non-Rebreather Mask 02/11 1000 98.6 103 26 97/62 96 CPAP 15.0 02/11 0913 103 23 100/61 97 CPAP 100 02/11 0830 15.0 Non-Rebreather Mask 02/11 0800 107 28 98/62 97 CPAP 100 I&O 02/12 0000 02/11 1600 02/11 0800 Intake Total 0 227 3443 Output Total 1575 1530 3580 Balance -1575 -1303 -137 General Appearance Patient arousable, mild distress Lungs Bronchial Breath Sounds Right Base Consistent with Consolidation Versus Pleural Effusion Cardiovascular Regular rate and rhythm, tachycardic. Abdomen Normal bowel sounds, Soft Extremities No cyanosis, No clubbing Neurological Cranial nerves intact, No lateralizing signs Psych/Mental Status lethargic but arousable LAB Results Laboratory Tests 02/12 0525 Chemistry Plasma Sodium (136 - 145 mmol/L) 145 Plasma Potassium (3.5 - 5.1 mmol/L) 3.6 Plasma Chloride (98 - 107 mmol/L) 115 CO2 (Enzymatic) (21 - 32 mmol/L) 24 BUN (7 - 18 mg/dL) 10 Creatinine (0.6 - 1.3 mg/dL) 0.7 Est GFR ( Amer) (mL/min) >60 Est GFR (Non-Af Amer) (mL/min) >60 Glucose (70 - 110 mg/dL) 83 Plasma Calcium (8.5 - 10.1 mg/dL) 8.9 Plasma Magnesium (1.8 - 2.4 mg/dL) 1.7 Total Bilirubin (0.0 - 1.0 mg/dL) 0.6 AST (15 - 37 U/L) 44 ALT (12 - 78 U/L) 44 Alkaline Phosphatase (46 - 116 U/L) 65 Total Protein (6.4 - 8.2 g/dL) 4.8 Albumin (3.3 - 5.0 g/dL) 2.4 Hematology WBC (4.5 - 11.5 K/uL) 11.2 RBC (4.50 - 5.90 M/uL) 3.89 Hgb (13.5 - 17.5 gm/dL) 11.5 Hct (41.0 - 53.0 %) 35.3 MCV (80 - 100 fL) 91 MCH (26 - 34 pg) 30 RDW (11.6 - 14.8 %) 13.7 Neut % (Auto) (50 - 75 %) Pending Lymph % (Auto) (25 - 40 %) Pending [place] % (Auto) (3 - 14 %) Pending Band Neutrophils % (0 - 8 %) Pending Plt Count, EDTA (150 - 400 K/uL) 179 PUBS MCHC (31 - 37 g/dL) 33 Assessment and Plan Problem List 1. Pneumonia Plan -Patient with findings of worsening pneumonia right side -Sputum culture positive for staph aureus -Switch antimicrobial regimen Zyvox and ertapenem -Await final sputum C&S -Patient with moderate respirator distress/hypoxemia requiring BiPAP therapy 2. UTI (urinary tract infection) Plan -Urine C&S shows no growth -Monitor 3. Seizure disorder Plan -Stable -Continue Keppra -Monitor 4. Hypotension Plan -Improved -Monitor 5. Sepsis Plan -Status improved -Severe pneumonia -Continue antimicrobials as noted above 6. Atrial fibrillation Plan -Patient in sinus rhythm -Monitor Current status: Critical, unstable Anticipated discharge date: Anticipated discharge 3-4 days Anticipated discharge placement: Home versus halfway facility Patient care time: Time spent in chart review, patient interview, physical exam, CPOE, and care documentation: 35 minutes Visit to patient today: 2 Complexity of care: High E&M Codes Rounding: Inpt-High/[id number]
--- NOTE | 2016-02-13 08:05 | DIAGNOSTIC IMAGING REPORT ---
PROCEDURE: XR CHEST 1 VIEW INDICATION: Pneumonia, follow-up TECHNIQUE: Portable AP view 07:48 a.m. COMPARISON: Chest x-ray 02/11/2016 FINDINGS: The patient is rotated. Mild progression of large right mid lung and basilar pneumonia with effusion. Improving left basilar pneumonia. Heart size and pulmonary vessels are normal. Stable right PICC line in satisfactory position. No suspicious osseous lesions. Thorax is normal. IMPRESSION: 1. Progression of extensive right sided pneumonia with small effusion 2. Improving left basilar pneumonia 3. Right PICC line in satisfactory position
--- NOTE | 2016-02-13 16:00 | NUR ---
NUTRITION FOLLOW UP NOTE: Pt continues NPO, alerted MD that pt was on a drinkable puree diet when he was here last and what pts mom said "cant chew, only swallow". Recommended swallow evaluation, MD agreeable.
--- NOTE | 2016-02-13 16:49 | DIAGNOSTIC IMAGING REPORT ---
REFERRING PHYSICIAN/PROVIDER: Ollie Pratt MD CONSULTING PAYROLL AND BENEFITS COORDINATOR: Juan Antonio Crook Jr MD PROCEDURE: M-mode 2D echocardiography with spectral and color flow Doppler TECHNICAL QUALITY: The study quality was technically adequate except for ruling out to VSD in the subcostal views. INDICATION: TACY RHYTHM DURING PROCEDURE: The patient was in sinus tachycardia with heart rates between 100 to 110 beats per minute. INTERPRETATIONS: LEFT VENTRICLE: The left ventricle is normal in size, wall thickness, and systolic function without any focal wall motion abnormalities. Cannot exclude VSD but given the RV is grossly normal and RV systolic pressure is not elevated this suggest no evidence of significant VSD. Consider focus study to rule out VSD with better image quality. The ejection fraction is estimated to be 60-65%. RIGHT VENTRICLE: The right ventricle is not well visualized. The right ventricle grossly appears normal in size with probable normal systolic function. ATRIA: Both atria are normal in size. The interatrial septum is intact with no evidence for an atrial septal defect. MITRAL VALVE: The mitral valve is normal in structure and function. There is trace mitral regurgitation. AORTIC VALVE: The aortic valve is trileaflet. Aortic valve opens well. No aortic regurgitation is present. TRICUSPID VALVE: Tricuspid valve is normal in structure but is abnormal and function. There is mild to moderate tricuspid regurgitation. The right ventricular systolic pressure is estimated at 19 mmHg assuming a right atrial pressure of 3 mmHg. PULMONIC VALVE: The pulmonic valve is not well visualized but is grossly normal. There is trace or physiologic amount of pulmonic regurgitation. GREAT VESSELS: The great vessels show evidence for mildly dilated aortic root measuring at 3.9 cm. The dimensions of the ascending aorta are normal. The IVC is of normal diameter and collapses greater than 50% with the sniff. This suggests a low right atrial pressure of 3 mmHg. PERICARDIUM: There is no pericardial effusion. IMPRESSION: 1. There is normal LV and RV systolic function. 2. Both atria are normal in size. 3. Cannot completely exclude VSD in subcostal views due to image quality. However suspicious level given the fact that RV chamber size is normal and RV systolic pressures are normal as well. Consider repeating a focus study to rule out VSD with poor image quality. 4. Mildly dilated aortic root measuring at 3.9 cm. 5. Mild to moderate tricuspid regurgitation with right ventricular systolic pressures measured at 19 mmHg.
--- NOTE | 2016-02-13 18:16 | NUR ---
PT HAS BEEN FEBRILE ON AND OFF ALL DAY WITH SOME RELIEFT FROM THE TYLENOL SUPP. PT HAS BEEN DEEP NASAL SUCTIONED X 2 WITH COPIOUS AMOUNTS OF BROOKS SPUTUM. AFTERWARDS PT'S RESP STATUS IMPROVED WITH A DECREASE IN RESP RATE AND NOTICIBLY CLEARER LS. PT APPEARS MORE RELAXED AND RESTFUL SLEEP. PT HAS HAD 3 LARGE WATERY BOWEL MOVEMENTS AND A STOOL SPECIMEN WAS SENT TO R/O C-DIFF.
[2016-02-14] VITALS (24 sets, daily range): BP systolic 84–109; BP diastolic 52–71
--- NOTE | 2016-02-14 11:51 | Progress Note ---
Subjective General Pt. admitted 02/11 with R sided pneumonia growing out staph a. Currently pt. is on Bipap with good O2 sats. He is on Ertapenem and Vancomycin. Constitutional Other (pt. non verbal, not able to re). Denies: Fever. Eyes Denies: Conjunctival Inflammation, Eyelid Inflammation, Redness. Respiratory Other (congested. ). Gastrointestinal Other (some loose stools, C diff -). Genitourinary Other (eller cath). Skin Denies: Rash, Lesions, Jaundice, Bruising. Neurological Other (Non verbal, ambulates at home). Physical Exam Vital Signs / I&Os Vital Signs Date Time Temp Pulse Resp B/P Pulse O2 O2 Flow FiO2 Ox Delivery Rate 02/13 1126 94 21 89/56 97 Bipap 75 02/13 1100 99.1 85 20 86/59 100 Bipap 75 02/13 0913 99.0 93 26 95/58 98 Bipap 75 02/13 0801 88 21 97/64 97 Bipap 75 02/13 0700 89 23 95/59 97 Bipap 75 02/13 0612 87 19 93/59 99 Bipap 75 02/13 0500 100.2 92 22 96/58 99 Bipap 75 02/13 0416 102.7 02/13 0412 112 32 99/57 95 Bipap 75 02/13 0344 102.4 02/13 0300 100.4 97 34 98/62 97 Bipap 75 02/13 0244 100.6 02/13 0224 10.0 02/13 0200 117 32 91/64 96 Bipap 75 02/13 0100 110 29 108/62 93 100 Non-Rebreather Mask 02/13 0000 104 32 105/62 97 Bipap 75 02/12 2323 100.2 101 21 98/59 96 Bipap 75 02/12 2200 99 27 92/53 95 Bipap 75 02/12 2154 99.5 100 29 104/65 100 Bipap 12.0 02/12 2100 99.7 99 26 99/69 100 Bipap 12.0 02/12 2000 100.8 96 23 94/64 100 Bipap 12.0 02/12 1945 Bipap 75 02/12 1907 96 22 97/60 99 Bipap 12.0 02/12 1821 99.5 99 14 97/60 100 Bipap 12.0 02/12 1700 100.0 111 37 105/69 98 Bipap 12.0 02/12 1600 100.9 104 20 87/41 98 Bipap 12.0 02/12 1500 100.9 102 20 87/41 97 Bipap 12.0 02/12 1400 101.5 104 31 90/49 97 Bipap 75 02/12 1323 116 33 107/61 94 Bipap 12.0 02/12 1305 102.0 113 36 99 Bipap 75 02/12 1208 97/57 02/12 1207 96 25 99 Bipap 75 I&O 02/12 0800 02/12 1600 02/13 0000 Intake Total 2582 2575 Output Total 855 618 885 Balance 1727 -618 1690 General Appearance opens eyes to stimulation. Moving arms and legs Lungs decreased aair movement marked bronchial breath sounds on R, scattered rhonchi on L Cardiovascular Regular rate and rhythm, Normal S1 and S2, No murmurs, gallops, rubs Abdomen Soft, No tenderness, No guarding Extremities trace edema Neurological No lateralizing signs LAB Results Laboratory Tests 02/13 623 Chemistry Plasma Sodium (136 - 145 mmol/L) 149 Plasma Potassium (3.5 - 5.1 mmol/L) 3.2 Plasma Chloride (98 - 107 mmol/L) 116 CO2 (Enzymatic) (21 - 32 mmol/L) 26 BUN (7 - 18 mg/dL) 13 Creatinine (0.6 - 1.3 mg/dL) 0.6 Est GFR ( Amer) (mL/min) >60 Est GFR (Non-Af Amer) (mL/min) >60 Glucose (70 - 110 mg/dL) 90 Plasma Calcium (8.5 - 10.1 mg/dL) 8.9 Plasma Magnesium (1.8 - 2.4 mg/dL) 1.6 Hematology WBC (4.5 - 11.5 K/uL) 7.0 RBC (4.50 - 5.90 M/uL) 3.27 Hgb (13.5 - 17.5 gm/dL) 9.6 Hct (41.0 - 53.0 %) 29.6 MCV (80 - 100 fL) 90 MCH (26 - 34 pg) 29 RDW (11.6 - 14.8 %) 14.0 Neut % (Auto) (50 - 75 %) 59 Lymph % (Auto) (25 - 40 %) 16 [place] % (Auto) (3 - 14 %) 4 Eos % (Auto) (0 - 4 %) 0 Baso % (Auto) (0 - 2 %) 0 Band Neutrophils % (0 - 8 %) 20 Metamyelocytes % (0 - 1 %) 1 Myelocytes (0 - 1 %) 0 Other Cell Type 0 Plt Count, EDTA (150 - 400 K/uL) 176 PUBS MCHC (31 - 37 g/dL) 33 Microbiology Date/Time Procedure - Status Source Growth 02/12 1600 Clostridium difficile Toxin A & B - COMP STOOL 02/12 1600 Specimen Source - COMP STOOL Assessment and Plan Problem List 1. Pneumonia Plan continue vanco and ertapenem 2. Hypoxia Plan continue Bipap. 3. Seizure disorder Plan continue current seizure meds. 4. Hypotension Plan will follow for now. 5. Hypotension 6. Hypokalemia Plan increase K+ in IVFs 7. Hypomagnesemia Plan magnesium 2 gm IV today.
--- NOTE | 2016-02-14 15:55 | NUR ---
PT FOUND TEMP WARM 102, RESP RATE IN THE 30'S TO 40'S WITH BI-PAP MASK ON AND A LARGE AMOUNT OF GREEN SPUTUM INSIDE. RESPIRATORY REQUESTED TO DEEP SUCTION THE PT. PT IS INCONT OF LARGE AMOUNT OF WATERY GREEN STOOL. PT CLEANED WITH A LARGE AMOUNT OF CALAZIME CREAM APPLIED TO COCCYX. PT WAS TAKEN OFF BI-PAP AND THEN A MEPILEX APPLIED TO FORHEAD TO DISCOURAGED SKIN BREAKDOWN, BEFORE RESTARTED ON BI-PAP. ALSO TYLENOL SUPPOSITORY GIVEN FOR A TEMP OF 100.4 AXILLARY.
--- NOTE | 2016-02-14 20:30 | NUR ---
PT BERNIE INFORMED OF PATIENTS CURRENT VITALS SIGNS, BP 90/56 MAP OF 67, HR 78, O2 SAT OF 97% ON BIPAP 40%. DC'D CVP MONITORING FOR NOW DUE TO PT NOT BEING ON PRESSORS. STATED LONG URINE OUTPUT IS SUFFICIENT BP IS OKAY. ORDER WRITTEN IN CHART. VSS. CVP LINE TAKEN DOWN. PICC LINE FLUSHED WELL WITH 20 ML NS. BIPAP 40%. MONTERO INTACT, AND SECURED TO LEG, UO GREATER THAN 30 ML/HR. BED IN LOWEST POSITION, CALL LIGHT IN REACH, PT IN VIEW OF RN STATION. WCTM
[2016-02-15] VITALS (17 sets, daily range): BP systolic 86–111; BP diastolic 53–72
--- NOTE | 2016-02-15 07:34 | DIAGNOSTIC IMAGING REPORT ---
PROCEDURE: XR CHEST 1 VIEW INDICATION: Follow up pneumonia. TECHNIQUE: Portable AP view (0710 hours). COMPARISON: Compared to chest x-ray on 02/13/2016 and 02/11/2016. FINDINGS: There has been no change in severe right mid and lower lung pneumonia with small right pleural effusion. There is no change in moderate left basilar pneumonia. Heart and mediastinum are normal. Right PIC line in superior vena cava. IMPRESSION: 1. No change in severe bilateral pneumonia, right greater than left, with small right pleural effusion.
--- NOTE | 2016-02-15 08:50 | Progress Note ---
Subjective General Brief History: The patient is a 35-year-old single white male with a significant past make a history of autism/developmental delay, seizure disorder, history of DVTs, recurrent UTI, asthma, who presented to [facility] emergency department on the day of admission secondary to complaints of shortness of breath and difficulty breathing. [facility] ER evaluation was consistent with bibasilar pneumonia, UTI, possible sepsis. Secondary to the above, Dr. Palmer Cortez (patient's PCP) was contacted and he requested the patient be admitted by the hospitalist service. Has been on bipap. Has been terrrible with his cxr not much change. Patient is awake and alert and not communictative due to his dev delay. Physical Exam Vital Signs / I&Os Vital Signs Date Time Temp Pulse Resp B/P Pulse O2 O2 Flow FiO2 Ox Delivery Rate 02/14 0744 97.7 66 15 91/62 97 Bipap 35 02/14 0609 97.7 115 18 98/67 100 Bipap 45 02/14 0536 103/72 100 02/14 0402 97.0 02/14 0400 62 14 90/60 100 Bipap 45 02/14 0300 94/67 02/14 0211 60 12 98/58 100 Bipap 40 02/14 0100 97.2 78 18 90/56 97 02/14 0018 80 23 102/72 98 Bipap 40 02/13 2309 98.1 67 19 94/58 97 Bipap 40 02/13 2210 79 23 102/71 100 Bipap 40 02/13 2109 98.4 73 20 88/59 98 Bipap 40 02/13 2012 80 18 90/56 100 Bipap 40 02/13 1950 Bipap 40 02/13 1920 80 18 92/55 96 Bipap 45 02/13 1800 98.4 89 28 92/52 99 Bipap 45 02/13 1718 94 23 91/53 98 Bipap 45 02/13 1627 99 27 102/62 89 Bipap 30 02/13 1532 100.4 02/13 1522 108 46 109/56 92 Bipap 30 02/13 1407 99.9 86 20 92/58 94 Bipap 75 02/13 1345 99.9 87 20 84/54 93 Bipap 75 02/13 1217 107 22 88/56 96 Bipap 75 02/13 1126 94 21 89/56 97 Bipap 75 02/13 1100 99.1 85 20 86/59 100 Bipap 75 02/13 0913 99.0 93 26 95/58 98 Bipap 75 I&O 02/14 0000 02/13 1600 02/13 08 Intake Total 1467 1418 Output Total 785 645 745 Balance 682 773 -745 General Appearance Alert HEENT clear Lungs coarse BS non focal Cardiovascular Regular rate and rhythm Abdomen Soft, No tenderness Extremities No edema LAB Results Laboratory Tests 02/14 0410 Chemistry Plasma Sodium (136 - 145 mmol/L) 148 Plasma Potassium (3.5 - 5.1 mmol/L) 3.6 Plasma Chloride (98 - 107 mmol/L) 116 CO2 (Enzymatic) (21 - 32 mmol/L) 26 BUN (7 - 18 mg/dL) 15 Creatinine (0.6 - 1.3 mg/dL) 0.4 Est GFR ( Amer) (mL/min) >60 Est GFR (Non-Af Amer) (mL/min) >60 Glucose (70 - 110 mg/dL) 87 Plasma Calcium (8.5 - 10.1 mg/dL) 9.0 Plasma Magnesium (1.8 - 2.4 mg/dL) 1.9 Hematology WBC (4.5 - 11.5 K/uL) 5.9 RBC (4.50 - 5.90 M/uL) 3.11 Hgb (13.5 - 17.5 gm/dL) 9.0 Hct (41.0 - 53.0 %) 28.0 MCV (80 - 100 fL) 90 MCH (26 - 34 pg) 29 RDW (11.6 - 14.8 %) 13.6 Neut % (Auto) (50 - 75 %) 64.7 Lymph % (Auto) (25 - 40 %) 27.8 [place] % (Auto) (3 - 14 %) 6.6 Eos % (Auto) (0 - 4 %) 0.3 Baso % (Auto) (0 - 2 %) 0.6 Plt Count, EDTA (150 - 400 K/uL) 197 PUBS MCHC (31 - 37 g/dL) 32 Assessment and Plan Problem List 1. Mental status alteration Plan chronic MS changes 2. Seizure disorder Plan stable 3. Sepsis Plan Improving. 4. Hypotension Plan Improved at this time. 5. Pneumonia Plan Bilaterally has pneumonia that is no much better continue abx. Will try to see if able to tolerate getting off bipap. ? if aspiration to start will see about swallow eval. 6. Hypoxia Plan stable.
--- NOTE | 2016-02-15 10:30 | NUR ---
PT SATS ON BI-PAP WERE AT 100%. REMOVED BI-PAP AND PLACED ON OXYMASK AT 10 LITERS WEANED PT DOWN TO 5 L WITH A SAT OF 96 %. TRANSFER PT TO A CHAIR USING TOTAL PORTABLE LIFT. PT CONTINUES TO HAVE A LOOSE COUGH THAT ATTEMPTS HAVE BEEMN MADE TO SUCTION WITH ONLY A SMALL AMOUNT. PT EYES ARE OPEN AND APPEARS MORE ALERT. DR. ROSS ORDERED A SWALLOW EVAL FOR TOMORROW. CALL MADE TO HIS MOTHER TO ASK WHETHER PT DRINKS FROM A CUP OR A CUP WITH STRAW. MOTHER STATED HE HAD NO SWALLOW DIFFICULTIES AND TAKES HIS MEDICATION WELL WITHOUT CHOKING. PT ACTIVITY LEVEL NORMALLY IS UP AMBULATING REGULARLY. ITER
--- NOTE | 2016-02-15 16:16 | NUR ---
PT IS UPRIGHT IN BED ALERT AND COOPERATIVE, OBSERVED HIM BEING A LITTLE RESTLESS WHEN HE HAS BEEN INCONT OF LIQUID STOOL. PT DOES VERY WELL TAKING CLEAR LIQUIDS WHEN SITTING UPRIGHT. PT HAS BEEN PROVIDED WITH TEJEDA BOOST/WATER AND NO S&S OF SWALLOWING ISSUES. DR. ROSS WOULD LIKE TO WAIT BEFORE ORDERING A PT EVAL
[2016-02-16 03:23] VITALS: BP 98/68
--- NOTE | 2016-02-16 07:06 | NUR ---
PT RESTED WELL OVERNIGHT. PT HAD TWO LIQUID STOOLS OVER NIGHT. PT WAS ON AN OXY MASK OVERNIGHT @ 4LPM WITH O2 SAT IN UPPER 90'S.
[2016-02-16 07:10] VITALS: BP 98/65
--- NOTE | 2016-02-16 08:00 | NUR ---
Patient sitting up in chair at this time. Patient is total lift. Patient is developmentally delayed and will follow very simple commands. Patient is non-verbal. Tele NSR HR 64. No sob noted. Oxy-mask 4L sats 94%. Patient will be having a swallow evaluation this AM. No signs of discomfort or distress at this time. Patient watching TV at this time. Will continue to monitor.
--- NOTE | 2016-02-16 09:32 | NUR ---
Pt presents with pneumonia and sepsis, requiring BiPAP from 02/10-02/14. Pt currently on 4L oxymask with O2 sat at 97% Med hx sig for developmental delay with related communication deficits. ED report stated that pt is not communicative at baseline. Pt did not produce any meaningful verbal output during evaluation, and did not follow directions for OME. Swallow was audibly discoordinated, with delay in initiation. Laryngeal excursion was complete. Delayed wet cough was observed after trials of thin water. Trials of nectar thick were without overt s/s of aspiration. Pt allowed minimal solid food trials. Due to limited trials, poor AP transit, and poor oral motor control, recommend puree textures, add cottage cheese, and nectar thick liquids. Pt should be fully evaluated as an outpatient for swallowing safety and an consult request will be faxed to his PCP. NUT DEHYDRATOR OPERATOR will follow as needed while the pt is admitted to [facility]. Discussed with GRACE.
--- NOTE | 2016-02-16 09:48 | NUR ---
Tele Sinus tejas with a pause of about 3 seconds. MD aware. Patient resting at this time. No symptoms noted. Will continue to monitor.
--- NOTE | 2016-02-16 10:16 | NUR ---
NUTRITION FOLLOW UP NOTE: Pt was seen by RETORT FURNACE HELPER this am. Diet puree textures with cottage cheese and nectar thick liquids. Pt needs to be fed, he does accept the oneil boost drink. Rec add high nick high pro to diet order. Offer Boost between meals add mighty shakes q meal. RD to follow up prn/protocol.
[2016-02-16 10:26] VITALS: BP 113/62
[2016-02-16 14:45] VITALS: BP 94/58
--- NOTE | 2016-02-16 15:07 | NUR ---
Patient had another 3-6 seconds pause. No symptoms noted. Patient watching TV. Md aware and will contact cardiology. Will continue to monitor.
--- NOTE | 2016-02-16 15:35 | NUR ---
Patient continues to have 3-6 second pauses. MD aware and waiting for a call back from cardiology. Strips in chart. No symptoms noted. Will continue to monitor.
--- NOTE | 2016-02-16 17:48 | NUR ---
amiodarone 200 mg given PO. Will continue to monitor.
--- NOTE | 2016-02-16 18:00 | NUR ---
Short 3 second pause noted. No symptoms. Md aware. Back to NSR after short pause. Will continue to monitor.
[2016-02-16 18:23] VITALS: BP 96/82
--- NOTE | 2016-02-16 22:29 | Progress Note ---
Subjective General Patient is seen at the bedside non communicative could not provide history Foun dto have pauses on telemetry discussed with group contract analyst cardiology from [facility], suggested no PPM for now, amiodarone orally Physical Exam Vital Signs / I&Os Vital Signs Date Time Temp Pulse Resp B/P Pulse O2 O2 Flow FiO2 Ox Delivery Rate 02/16 2124 5.0 02/15 1823 98.2 77 20 96/82 99 Mask 4.0 02/15 1445 98.1 73 17 94/58 92 Nasal 4.0 Cannula 02/15 1026 97.5 74 24 113/62 94 Mask 4.0 02/15 0844 4.0 02/15 0745 Mask 4.0 02/15 0710 98.1 74 20 98/65 97 Mask 4.0 02/15 0602 97 Mask 4.0 02/15 0323 98.8 68 18 98/68 95 Mask 6.0 02/15 0129 6.0 02/14 2348 97.9 80 20 98/67 100 Mask 6.0 I&O 02/14 0800 02/14 1600 02/15 0000 Intake Total 3475 116 3252 Output Total 560 1000 1000 Balance 1196 -320 1832 General Appearance Alert, No acute distress HEENT PERRLA Lungs Clear to auscultation Cardiovascular Regular rate and rhythm, Normal S1 and S2 Abdomen Normal bowel sounds, Soft, No tenderness, No guarding Extremities No edema Assessment and Plan Problem List 1. Sepsis Plan on IV antibiotics continue with it 2. Hypotension Plan improved off vasopressor on iv hydration 3. Hypoxia Plan on venti mask
--- NOTE | 2016-02-16 22:29 | Progress Note ---
Subjective General Patient is seen at the bedside non communicative could not provide history Foun dto have pauses on telemetry discussed with circulation assistant cardiology from [facility], suggested no PPM for now, amiodarone orally Physical Exam Vital Signs / I&Os Vital Signs Date Time Temp Pulse Resp B/P Pulse O2 O2 Flow FiO2 Ox Delivery Rate 02/16 2124 5.0 02/15 1823 98.2 77 20 96/82 99 Mask 4.0 02/15 1445 98.1 73 17 94/58 92 Nasal 4.0 Cannula 02/15 1026 97.5 74 24 113/62 94 Mask 4.0 02/15 0844 4.0 02/15 0745 Mask 4.0 02/15 0710 98.1 74 20 98/65 97 Mask 4.0 02/15 0602 97 Mask 4.0 02/15 0323 98.8 68 18 98/68 95 Mask 6.0 02/15 0129 6.0 02/14 2348 97.9 80 20 98/67 100 Mask 6.0 I&O 02/14 0800 02/14 1600 02/15 0000 Intake Total 8133 846 8327 Output Total 560 1000 1000 Balance 1196 -320 1832 General Appearance Alert, No acute distress HEENT PERRLA Lungs Clear to auscultation Cardiovascular Regular rate and rhythm, Normal S1 and S2 Abdomen Normal bowel sounds, Soft, No tenderness, No guarding Extremities No edema Assessment and Plan Problem List 1. Sepsis Plan on IV antibiotics continue with it 2. Hypotension Plan improved off vasopressor on iv hydration 3. Hypoxia Plan on venti mask
[2016-02-16 22:31] VITALS: BP 98/62
--- NOTE | 2016-02-16 23:15 | NUR ---
@ 2129 PT'S HEART RHYTHM CHANGED FROM NSR TO A-FIB, TELE STRIP MOUNTED IN CHART. DR. OLIVO PRESENT ON UNIT SHORTYL AFTER 2129, AND RN SHOWED MD THE TELE STRIP. NO NEW ORDERS GIVEN. @ 22:00 PACER PADS PLACED ON PATIENT DUE TO THE FREQUENT PAUSES. @22:30 PATIENT'S HR RATE INCREASED TO 130'S, RR 20, O2 SAT 89% ON 5 LPM O2 VIA OXY MASK, TEMP 99.8. RT CALLED TO EVAL PT IF SUCTION OR BREATHING TX IS NEEDING. RT NT SUCTIONED PT. O2 SAT SLOWLY INCREASED BACK INTO THE 90'S. @ 2310 SHIFT SUP INFORMED OF PATIENTS STATUS AND PACER PAD PLACEMENT. DR OLIVO PAGED AND INFORMED OF PT'S HEART RATE, RHYTHM, VITALS. NO NEW ORDERS GIVEN. PT STATED TO NOTIFY MD IF HR SUSTAINS ABOVE 130 FOR LONGER THAN 1 MIN. PT RESTING IN BED, NO DISTRESS NOTED. O2 INCREASED TO 6 LPM VIA OXY MASK.
[2016-02-17] VITALS (14 sets, daily range): BP systolic 82–110; BP diastolic 54–73
--- NOTE | 2016-02-17 06:22 | NUR ---
RN IN ROOM CHANGING IV BAG. PT SITTING UP IN BED LYING FLAT ON BACK, LOOKING AT TV. WHILE CHARTING IN ROOM, ASYSTOLE ALARM WENT OFF ON MONITOR. WHILE IT WAS ALARMING, PT HAD A SMALL COUGH, AND HIS EYES CLOSED FOR <2 SECONDS, THEN EYES REOPENED. MONITOR SHOWED APPROX 11 SEC PAUSE. 02 SAT DROPPED FROM 94% TO 83%. RT CALLED TO EVALUATE PT AND POSSIBLE SUCTION IF NEEDED. VITALS TAKEN RIGHT AFTERN EVENT: BP 110/72, HR 88, T 97.3. PAGED @ 8451 AND INFORMED OF PATIENTS STATUS, AND THE 11 SEC PAUSE, AND VITALS. NO NEW ORDERS GIVEN. STATED THAT A TRANSFER TO [facility] THIS AM COULD BE POSSIBLE BUT WILL WAIT UNTIL DR. RODRIGUEZ EVALUATES PT IN AM [facility].
--- NOTE | 2016-02-17 06:34 | NUR ---
PT RESTING IN BED, NO DISTRESS NOTED. RN SUP INFORMED OF PATIENTS STATUS AND POSSIBILTY FOR TRANSFER. PT'S HR 97, 02 SAT 93%, A-FIB NOTED. WCTM.
--- NOTE | 2016-02-17 07:34 | Progress Note ---
Subjective General Develop delayed patient admitted last week with pneumonia, sputum + MRSA, and sepsis. Since has developed A fib and now with asystole up to 12 seconds. mentally alert and responsive and w/o distress. Transfer requested but no bed available. Amiodorone x1 not effective as directed by cardiology at [facility]. Withdrawn as is typical when he gets sick. Constitutional Weakness, Malaise. Denies: Fever, Sweats. Eyes Denies: Pain, Conjunctival Inflammation, Eyelid Inflammation, Redness. ENT Denies: Ear Discharge, Nasal Discharge, Mouth Pain, Mouth Swelling, Throat Swelling. Respiratory Wheezing, Other (shallow breaths). Denies: Cough, Hemoptysis. Cardiovascular Other (PAF w/ long pauses). Denies: Chest Pain. Gastrointestinal Diarrhea (x1 this am). Denies: Nausea, Vomiting, Abdominal Pain, Melena, Hematochezia. Genitourinary Other (Smith in). Musculoskeletal Denies: Neck Pain, Shoulder Pain, Arm Pain, Back Pain, Hand Pain, Leg Pain, Foot Pain. Skin Denies: Rash, Lesions. Neurological Confusion. Denies: Seizures. Physical Exam Vital Signs / I&Os Vital Signs Date Time Temp Pulse Resp B/P Pulse O2 O2 Flow FiO2 Ox Delivery Rate 02/16 0707 97.0 79 21 88/64 100 Mask 7.0 02/16 0619 88 98 Mask 7.0 02/16 0508 97.3 84 20 110/72 90 Mask 6.0 02/16 0250 97.9 99 21 91/57 93 Mask 6.0 02/15 2243 6.0 02/15 2240 121 93 Mask 6.0 02/15 2231 99.9 118 22 98/62 89 Mask 6.0 02/15 2125 5.0 02/15 2021 Mask 5.0 02/15 1823 98.2 77 20 96/82 99 Mask 4.0 02/15 1445 98.1 73 17 94/58 92 Nasal 4.0 Cannula 02/15 1026 97.5 74 24 113/62 94 Mask 4.0 02/15 0844 4.0 02/15 0745 Mask 4.0 I&O 02/15 0800 02/15 1600 02/16 0000 Intake Total 9771 043 1510 Output Total 1425 1800 2450 Balance -260 -1560 -768 General Appearance Alert, No acute distress HEENT PERRLA, EOMI, lips dry Lungs Poor inspiratory efforts. + rales, rhonchi, and wheeze Neck Supple, No JVD, No lymphadenopathy Cardiovascular No murmurs, gallops, rubs, irreg irreg w/o m Abdomen Soft, No tenderness, No masses Pelvic Normal penis Extremities No cyanosis, No clubbing, No edema, good turgor Skin No Rashes, No Breakdown, No Significant Lesions Neurological No lateralizing signs, Devel delay w/ MR and nonverbal normally. He does respond appropriately and is interactive Psych/Mental Status Mental status normal (FOR HIM. ), Confused, NORMALLY WITHDRAWN WHEN SICK. NO SEIZURES WHITNESSED Assessment and Plan Problem List 1. Pneumonia Plan ON ZYVOX W/ MRSA + SPUTUM. AFEBRILE AND WBC NORMALIZED. CXR STABLE. 2. Sepsis Plan BC'S NEGATIVE X 2. UC NEGATIVE. IMPROVED WITH ABC 3. Atrial fibrillation Plan RATE CONTROLLED. EPISODES OF ASYSTOLE. RECEIVING AMIODORONE. TRASFER DUE TO LONG UP TO 12 SECOND PAUSES REQUESTED AND PENDING PER HOSPITALIST. FULL CODE STATUS. 4. Seizure disorder Plan CONTROLLED ON 2 AGENTS 5. DVT (deep venous thrombosis) Plan HX DVT ON PREVIOUS ADMIT FOR PNEUMONIA DUE TO INACTIVITY E&M Codes Rounding: Inpt-Moderate/[id number]
--- NOTE | 2016-02-17 08:02 | NUR ---
@ 6334 PT'S TELE ALARMED SHOWING ASYTOLE. BUTCHER APPRENTICE IN ROOM WITH PATIENT AT THE TIME. PT WAS AWAKE WITH EYES OPEN LOOKING AT TV. PT HAS APPOX 11.5 SEC PAUSE, HR SHOWED ZERO, AND HR QUICKLY RETURNED TO THE 90'S. O2 SAT DECREASED DOWN INTO THE 80'S, RT PRESENT ON UNIT, AND INFORMED OF LOW O2 SAT. PT MICHAEL PRESENT ON UNIT @ 0705. DR. RODRIGUEZ INFORMED OF PATIENTS EXTENDED HEART PAUSES, VITALS, AND CURRENT MEDICATIONS. DISCUSSED TRANSFERRING PATIENT IF BED IS AVAILABLE. REPORT GIVEN TO DAY SHIFT RN @ 2757.
--- NOTE | 2016-02-17 08:15 | NUR ---
Patient in bed resting at this time. Tele bradycardia HR 26 @ 0807 for a run of 7 secs then back to a-fib. MD aware and no new orders obtained. Strips in chart. No symptoms noted. Patient awake and watching TV. No distress or discomfort noted. BP 100/65. Patient on 7L oxy mask sats 95%. No signs of sob. Patient developmentally delayed but will follow a few simple commands. Smith patent clear yellow urine. Patient repositioned frequently. Patient on waffle mattress to help prevent skin breakdown. Patient cooperative with care. Will continue to monitor.
--- NOTE | 2016-02-17 09:43 | NUR ---
Patient had 8 second pause. Back to A-fib. Strips in chart. MD notified and no new orders obtained. Pacer pad on but not hooked up to pacer. Crash cart at bedside. Will continue to monitor.
--- NOTE | 2016-02-17 11:10 | NUR ---
air sampling and monitoring noted patient to have short pause 4 seconds then back into a-fib. No symptoms noted. Patient resting in bed watching TV. MD aware. Will continue to monitor.
--- NOTE | 2016-02-17 13:26 | NUR ---
Patient in bed resting at this time. BP at 1300 83/66 HR 92 continues to be in a-fib. notified about low BP. NS 500cc bolus started. Patient putting out good urine output. Will continue to monitor.
--- NOTE | 2016-02-17 14:06 | NUR ---
NS 500cc/hr bolus completed. BP at 1400 100/54. Will continue to monitor.
--- NOTE | 2016-02-17 15:30 | NUR ---
BP low. MD aware. NS 500cc bolus started. Will continue to monitor.
--- NOTE | 2016-02-17 16:10 | NUR ---
NS 500cc/hr bolus completed. BP 95/61 at 1608. Patient will be transfered up to [facility] via ambulance for a pace maker. Will continue to monitor.
--- NOTE | 2016-02-17 16:40 | NUR ---
Patient transfered to [facility] for a pacemaker placement. Patient transported via ALS ambulance. Report given to RN on ambulance. Patient sent to [facility] with AZAM piccline. 1000 ml NS bag sent with patient. [facility] and report given to Samantha EDWARDS. Transfer packet sent with ambulance and patient. Mother informed that patient is being transfered to [facility].
--- NOTE | 2016-02-17 17:00 | Consultation Report ---
History Family History Relation not specified for: Diabetes Heart Disease Medications and Allergies Allergies Coded Allergies: Morphine (Severe, Seizures 02/12/16) Penicillins (Severe, HIVES 02/12/16) Sulfa Drugs (Severe, HIVES 02/12/16)
--- NOTE | 2016-02-18 07:14 | Provider's Discharge Care Plan ---
Problem, Goal, Plan Problem List 1. Atrial fibrillation Instructions: pacemaker placement 2. Pneumonia Instructions: finish course of Zyvox
--- NOTE | 2016-02-18 07:14 | Provider's Discharge Care Plan ---
Problem, Goal, Plan Problem List 1. Atrial fibrillation Instructions: pacemaker placement 2. Pneumonia Instructions: finish course of Zyvox
--- NOTE | 2016-02-18 08:24 | DISCHARGE SUMMARY ---
ADMIT DATE: 02/11/2016 DISCHARGE DATE: 02/17/2016 DISCHARGE DIAGNOSIS: 1. Pneumonia, bilateral, with sepsis 2. Atrial fibrillation with long sinus pauses of asystole 3. Stable seizure disorder 4. Developmental delay with mental retardation BRIEF HISTORY: The patient is a developmentally disabled seizure patient who was seen at the [facility] 2 days before admission with progressive bronchitis. He had already been treated with a Z-Jason and then Keflex was added. Over the following 2 days and prior to admission, his respiratory condition worsened with cough, congestion, and then developing fever. He was brought to the emergency department where a chest x-ray revealed pneumonia as well as elevated white count, bacteriuria and worsening respiratory status. He was admitted with a near respiratory failure requiring high flow oxygen and BiPAP. He was started on pneumonia protocol with Zithromax and ceftriaxone. Cultures were taken, including sputum, blood, and urine. HOSPITAL COURSE: The patient was admitted and treatment for sepsis was started as above. He improved over the following 2 days and then cultures revealed a Staphylococcus aureus organism of the sputum. Antibiotics were tailored to Zyvox intravenously and his white count and respiratory distress improved significantly. Complicating his admission was paroxysmal atrial fibrillation and then long pauses up to 12 seconds. He was treated with amiodarone upon suggestion from cardiology, but did not convert from atrial fibrillation. He did require on admission some pressor agents and fluids for hypotension relating to his sepsis which then resolved. He was maintained on Keppra intravenously for seizure control and did not have any further known witnessed seizures and certainly nothing of grand mal proportion. He was transferred to the [facility] for pacemaker placement and the finish of the antibiotic course for pneumonia. DISCHARGE INSTRUCTIONS/MEDICATIONS: The patient is transferred to the [facility]. Medications: Zyvox 300 mg IV b.i.d. Levetiracetam 1000 mg IV b.i.d. Pantoprazole 40 mg daily. Heparin 5000 units q.8 hours. subcutaneous. DuoNeb q.6 hours.
--- NOTE | 2016-02-18 11:15 | CONSULTATION REPORT ---
DATE OF CONSULTATION: 02/17/2016 CHIEF COMPLAINT: 1. Shortness of breath 2. Difficulty breathing HISTORY OF PRESENT ILLNESS: The patient is a 35-year-old white male with significant past medical history of autism, developmental delay, seizure disorder, history of DVT, frequent UTIs, asthma, who presented to [facility] emergency department on the day of admission secondary to complaints of shortness of breath and difficulty breathing. [facility] ED evaluation was consistent with bibasilar pneumonia, UTI and possible sepsis. For that, he was admitted to hospital for further evaluation. The history of present illness began approximately 3 days prior to admission when the patient developed cough, rhinorrhea, shortness of breath. His symptoms worsened, and he was seen by his family physician, Dr. Cortez, on the day prior to admission. He was placed on Keflex at that time. His symptoms worsened, with increasing shortness of breath, respiratory distress, which prompted evaluation at [facility] emergency department. Evaluation in [facility] emergency department showed the patient to have vital signs of blood pressure 95/61, pulse 121, respirations 24, temperature 99.5 rectally, O2 saturations were 93% on nonrebreather. The patient was noted to have mild respiratory distress. Laboratory evaluation was significant for a CBC: hemoglobin 14.3, hematocrit 44, WBC 18.5 with differential of 28 bands, 49 segments, 13 lymphs. Chemistry profile: Sodium 142, potassium 3.3, chloride 107, CO2 of 25, BUN 29, creatinine 0.9. Procalcitonin less than 0.5. Lactic acid 0.6. Urinalysis: Trace leukocyte esterase, 25-50 WBC and moderate bacteria. Chest x-ray showed bibasilar infiltrate. The patient had hypotension and was treated with vigorous IV fluid support and admitted with a diagnosis of pneumonia, UTI, sepsis, for further evaluation and treatment. MEDICAL/SURGICAL HISTORY: Developmental delay, autism, seizure disorder, history of DVTs, recurrent UTI. MEDICATIONS: 1. Amiodarone 200 mg p.o. b.i.d. 2. Potassium chloride. 3. Linezolid 600 mg b.i.d. 4. Keppra 1000 mg IV b.i.d. 5. Protonix 40 mg IV daily. 6. Heparin 5000 units q.8 hours. 7. Zofran 4 mg q.6 hourly IV p.r.n. 8. Nitroglycerin 0.4 mg p.r.n. sublingual every 5 minutes for 2 doses. 9. Magnesium hydroxide 10 mL every day. 10. Albuterol/ipratropium DuoNeb q.6 hourly p.r.n. 11. Mylanta 15 mL p.r.n. p.o. 12. Acetaminophen 650 mg every 4 hours p.r.n. ALLERGIES: 1. MORPHINE. SEVERE SEIZURES. SOCIAL HISTORY: Marital status: Single. Rastafari: None. Unemployed, disabled. FAMILY HISTORY: Father is 61 years old, multiple medical problems. Siblings: Brother, developmental delay. No history of tobacco use, drugs or alcohol abuse. REVIEW OF SYSTEMS: PHYSICAL EXAMINATION: VITAL SIGNS: Blood pressure 83/66, improved to 95/61 after normal saline bolus. Heart rate 93 beats per minute, temperature 97.7, respiratory rate 20 per minute, pulse oximetry 93 per minute, 93% O2 flow rate through Ventimask 7. GENERAL APPEARANCE: The patient is alert, awake, noncommunicative. HEENT: Eyes: Pupils are equal and reactive to light. Mucous membranes are moist. LUNGS: Bilateral crackles at the bases. NECK: Supple. Normal exam. HEART: Irregular rate and rhythm, with absent -------. ABDOMEN: Soft, nontender. Normal bowel sounds. No guarding, no rebound. EXTREMITIES: No edema. NEUROLOGIC: No acute lateralizing signs. LAB/IMAGING: Sodium 143, potassium 3.7, chloride 110, CO2 of 27, BUN 5, creatinine 0.6, GFR more than 60, glucose 145, calcium 9.2, magnesium 1.9. Total bilirubin 0.3, AST 33, ALT 35, alkaline phosphatase 63, total protein 5.7, albumin 2.2, hemoglobin 12, hematocrit 36.2, WBC 8.3, neutrophils 46%, lymphocytes 46%, monocytes 4%, eosinophils 2%, and basophils 2%, platelets 197. INR 1.3, APTT 33, and D-dimer 1.47. Vancomycin trough done on 02/13/2016: 9.2. Procalcitonin 0.3. Imaging: Chest CT thorax with contrast: Severe bibasilar pneumonia. No evidence of pulmonary embolus. A 10 mm nonobstructing left renal calculus. A 2-D echocardiogram: Impression: There is normal LV and RV systolic function. Both atria are normal in size. Cannot completely exclude VSD in subcostal views, due to image quality; however, suspicious level, given the fact that RV chamber size is normal and RV systolic pressures are normal as well. Consider repeating a focused study to rule out VSD with poor image quality. Mildly dilated aortic root measuring at 3.9 cm, [id number] tricuspid regurgitation with a right ventricular systolic pressure estimated at 90 mmHg. Chest x-ray impression: No change in severe bilateral pneumonia, right greater than left, with a small right pleural effusion. Sputum culture: Respiratory culture for methicillin-resistant Staphylococcus aureus. Urine cultures, no growth. Blood cultures, no growth. IMPRESSION/PLAN: 1. A 35-year-old male with multiple medical problems was admitted with difficulty breathing and change in mental status, found to have bibasilar pneumonia. Sputum culture grew methicillin-resistant Staphylococcus aureus. At the time of admission, he was septic, with septic shock. For that, he was on vasopressors, Levophed , and IV hydration. He was also noted to have acute hypoxic respiratory failure. For that, he was on BiPAP, which later improved and switched to Ventimask oxygenation. During hospitalization, he had one episode of atrial fibrillation. For that, he was put on Cardizem drip, later he was converted to normal sinus rhythm spontaneously. For the last couple of days, he noted to have sinus pauses, sometimes more than 10 seconds; the longest pause was for 18 seconds Cardiology from [facility] consulted and he is transferred to the [facility] for possible pacemaker placement. Would suggest to continue with current antibiotics and IV hydration.Follow up with Cardiology from [facility].
== END 2016-02-17 18:30 | disposition short-term general hospital (02) | DRG 871 ==
LOC: ED SRH 09:48 → TRANS SRH 14:58 → CC SRH 17:31
PROVIDERS: ADMIT Student in an Organized Health Care Education/Training Program
PROC: 02HV33Z Insertion of Infusion Device into Superior Vena Cava, Percutaneous Approach (ICD-10-PCS; 2016-02-11)
PROC: 5A09357 Assistance with Respiratory Ventilation, Less than 24 Consecutive Hours, Continuous Positive Airway Pressure (ICD-10-PCS; 2016-02-12)
PROC: 5A09457 Assistance with Respiratory Ventilation, 24-96 Consecutive Hours, Continuous Positive Airway Pressure (ICD-10-PCS; principal; 2016-02-13)
DX: A41.9 Sepsis, unspecified organism (principal); J15.212 Pneumonia due to Methicillin resistant Staphylococcus aureus; R65.21 Severe sepsis with septic shock; J96.01 Acute respiratory failure with hypoxia; N39.0 Urinary tract infection, site not specified; F84.0 Autistic disorder; I48.91 Unspecified atrial fibrillation; I49.5 Sick sinus syndrome; G40.909 Epilepsy, unspecified, not intractable, without status epilepticus; I07.1 Rheumatic tricuspid insufficiency; E87.6 Hypokalemia; E83.42 Hypomagnesemia; F79 Unspecified intellectual disabilities
CPT/HCPCS: 20011; 81240; 83463; 83475; 83480; 85241; 85244; 90004; 90047; 90065; 90070; 90074; 90100; 90112; 90127; 90309; 90469; 91295; 91320; 91400; 91429; 91556; 91576; 91583; 91643; 91672; 92031; 92132; 92720; 93004; 94001; 94060; 95059; 95061

== ENCOUNTER 2016-02-29 11:47 | Emergency (ER) | payer OTHER ==
[~2016-02-29 11:47] MED LIST changes: +CARBAMAZEPINE200 MG PO; +KEFLEX500 M1 PO
--- NOTE | 2016-02-29 16:45 | DIAGNOSTIC IMAGING REPORT ---
PROCEDURE: XR CHEST 1 VIEW INDICATION: SYNCOPE AFTER PACEMAKER PLACEMENT TECHNIQUE: Portable AP view (1315 hours) COMPARISON: Compared to chest x-ray on 02/15/2016. FINDINGS: Interval placement of left subclavian dual lead pacemaker. Allowing for suboptimal inspiration and overlying wires and electrodes, there has been marked improvement with resolution of bibasilar pneumonia. Heart and mediastinum are normal. Thorax is normal. IMPRESSION: 1. Interim placement of left subclavian pacemaker. 2. Marked improvement with resolving bibasilar pneumonia chest.
--- NOTE | 2016-02-29 16:47 | DIAGNOSTIC IMAGING REPORT ---
PROCEDURE: XR ABDOMEN 1 VIEW INDICATION: ABDOMINAL PAIN TECHNIQUE: AP supine view. COMPARISON: Compared to chest x-ray earlier today (02/29/2016) and CT abdomen (02/15/2015). FINDINGS: There is a 10 mm left upper quadrant calcification consistent with known renal calculus. Bowel pattern is normal. Soft tissues and osseous structures are normal. IMPRESSION: 1. There is a 10 mm left renal calculus (previously documented). 2. Otherwise negative abdomen.
--- NOTE | 2016-02-29 16:53 | DIAGNOSTIC IMAGING REPORT ---
PROCEDURE: CTA THORAX WITH CONTRAST INDICATION: Syncope. Cyanosis. Recent pacemaker. Nonverbal the patient. TECHNIQUE: 84 ml of Isovue 370 was injected intravenously and axial images were obtained of the entire thorax with 3D sagittal and coronal MIP reconstructions. COMPARISON: Comparison is made to chest x-ray earlier today (02/29/2016) and CTA thorax (02/12/2016) FINDINGS: Interim placement of left subclavian pacemaker. There has been marked improvement with sub total resolution of bibasilar pneumonia. There is mild pulmonary vascular congestion. There is suboptimal opacification of the peripheral vessels as the patient is unable to fully cooperate. No large pulmonary emboli are identified. Heart is of normal size. There is moderate mucosal thickening and mild distention of the mid and distal esophagus with probable hiatal hernia. Thorax is normal. IMPRESSION: 1. Interim placement of left subclavian pacemaker. 2. Marked improvement with sub total resolution of severe bilateral pneumonia (since prior CTA 02/12/2016). 3. There is mild pulmonary vascular congestion and interstitial changes which may be a reflection resolving prior pneumonia or recurrent interstitial pneumonia (e.g., viral, aspiration). 4. There is moderate mucosal thickening of the distal esophagus with mild distention of the esophagus or hiatal hernia. Consider reflux esophagitis. 5. Suboptimal opacification of the peripheral pulmonary vessels (patient unable to fully cooperate). No large emboli are identified and there is nothing to suggest pulmonary embolus. 6. Findings discussed with Dr. Thee Schaeffer. All CT scans at this facility use dose modulation, iterative reconstruction, and/or weight-based dosing when appropriate to reduce radiation dose to as low as reasonably achievable.
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
--- NOTE | 2016-02-29 17:44 | ED ORDER SUMMARY ---
..... Patient: STEFAN CONRAD JR OrderSheet [facility] VisitID: [id number] [place] [address] 35y, M Registration Date/Time: 02/29/2016 ORDER SHEET Weight: 72.5 kg (estimated) Allergies: Morphine and Related, Penicillins, Sulfa Antibiotics GENERAL ORDERS: Chest 1V Urgent (12:47 02/29/2016 Sergey CASSIDY) (Ack 12:49 LMuller) (13:18 LMuller) Director Of Community Education (Continuous) (12:48 02/29/2016 Sergey CASSIDY) (Ack 12:49 LMuller) (12:52 JSimbeck R.N.) Cardiac Panel Stat (12:48 02/29/2016 Sergey CASSIDY) (Ack 12:49 LMuller) (12:56 LMuller) BNP Urgent (12:48 02/29/2016 Sergey CASSIDY) (Ack 12:49 LMuller) (12:56 LMuller) D-Dimer Urgent (12:48 02/29/2016 Sergey CASSIDY) (Ack 12:49 LMuller) (12:56 LMuller) Pulse oximeter (12:48 02/29/2016 Sergey CASSIDY) (Ack 12:49 LMuller) (12:52 JSimbeck R.N.) EKG - ER Stat (12:48 02/29/2016 Sergey CASSIDY) (Ack 12:49 LMuller) (13:20 JSimbeck R.N.) Abdomen 1V Urgent (12:48 02/29/2016 Sergey CASSIDY) (Ack 12:49 LMuller) (13:18 LMuller) Carbamazepine (Tegretol) Urgent (12:49 02/29/2016 Sergey CASSIDY) (Ack 12:49 LMuller) (12:56 LMuller) Old Records ([place] form most recent hospitalization: Discharge summary if available.) (12:57 02/29/2016 Sergey CASSIDY) (Ack 13:09 LMuller) (13:09 LMuller) CTA Thorax w Cont (No) (N/A) Urgent (14:33 02/29/2016 Sergey CASSIDY) (Ack 14:38 LMuller) (15:29 LMuller) MEDICATION ORDERS: IV FLUIDS: IV Saline Lock (12:48 02/29/2016 Sergey CASSIDY) (12:53 Marcos Horner) ORDER SHEET NOTES: [Electronically signed by Jabari Schulte R.N. (18:20 02/29/2016)] [Electronically signed by Thee Schaeffer MD (18:35 02/29/2016)] [Electronically locked/signed by Jabari Schulte R.N. (18:20 02/29/2016)]
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
--- NOTE | 2016-02-29 17:44 | ED ORDER SUMMARY ---
..... Patient: STEFAN CONRAD JR OrderSheet [facility] VisitID: [id number] [place] [address] 35y, M Registration Date/Time: 02/29/2016 ORDER SHEET Weight: 72.5 kg (estimated) Allergies: Morphine and Related, Penicillins, Sulfa Antibiotics GENERAL ORDERS: Chest 1V Urgent (12:47 02/29/2016 Sergey CASSIDY) (Ack 12:49 LMuller) (13:18 LMuller) Occupational Health Nurse Supervisor (Continuous) (12:48 02/29/2016 Sergey CASSIDY) (Ack 12:49 LMuller) (12:52 JSimbeck R.N.) Cardiac Panel Stat (12:48 02/29/2016 Sergey CASSIDY) (Ack 12:49 LMuller) (12:56 LMuller) BNP Urgent (12:48 02/29/2016 Sergey CASSIDY) (Ack 12:49 LMuller) (12:56 LMuller) D-Dimer Urgent (12:48 02/29/2016 Sergey CASSIDY) (Ack 12:49 LMuller) (12:56 LMuller) Pulse oximeter (12:48 02/29/2016 Sergey CASSIDY) (Ack 12:49 LMuller) (12:52 JSimbeck R.N.) EKG - ER Stat (12:48 02/29/2016 Sergey CASSIDY) (Ack 12:49 LMuller) (13:20 JSimbeck R.N.) Abdomen 1V Urgent (12:48 02/29/2016 Sergey CASSIDY) (Ack 12:49 LMuller) (13:18 LMuller) Carbamazepine (Tegretol) Urgent (12:49 02/29/2016 Sergey CASSIDY) (Ack 12:49 LMuller) (12:56 LMuller) Old Records ([place] form most recent hospitalization: Discharge summary if available.) (12:57 02/29/2016 Sergey CASSIDY) (Ack 13:09 LMuller) (13:09 LMuller) CTA Thorax w Cont (No) (N/A) Urgent (14:33 02/29/2016 Sergey CASSIDY) (Ack 14:38 LMuller) (15:29 LMuller) MEDICATION ORDERS: IV FLUIDS: IV Saline Lock (12:48 02/29/2016 Sergey CASSIDY) (12:53 Marcos Horner) ORDER SHEET NOTES: [Electronically signed by Jabari Schulte R.N. (18:20 02/29/2016)] [Electronically signed by Thee Schaeffer MD (18:35 02/29/2016)] [Electronically locked/signed by Jabari Schulte R.N. (18:20 02/29/2016)]
--- NOTE | 2016-02-29 18:35 | ED DISCHARGE INSTRUCTIONS ---
Patient: STEFAN CONRAD JR General Instructions [facility] VisitID: [id number] [place] [address] 35y, M Registration Date/Time: 02/29/2016 Probable generalized seizure associated with sub-therapeutic anticonvulsant levels and illness. History of poorly controlled and idiopathic etiology epilepsy. Acute esophagitis associated with gastro-esophageal reflux disease (GERD). Resolving pneumonia. INSTRUCTIONS (Restart high dose tegretol for the next 4 days then go back to the /2 from then on. Follow up with neurologist for monitoring and evaluation. Use over the counter zantac for reflux.). Your Current Medications: CONTINUE TAKING THE FOLLOWING MEDICATIONS: Aspir-81 Oral : Daily. CarBAMazepine Oral : Stopped February 11, 2016. CoQ-10 Oral. Doxycycline Hyclate Oral. Erythromycin Ophthalmic : Stopped February 28, 2016. Keppra Oral. Tylenol Oral : 650 mg PRN. Vitamin c Oral : 2000mg Daily. Vitamin D (Cholecalciferol) Oral. Vitamins*. Follow-up: Follow up with a neurologist in one week. Call for an appointment. Understanding of the discharge instructions verbalized by patient and parent. ADDITIONAL INFORMATION Recurrent Seizure [Adult] You have had another seizure today. A common cause of recurrent seizure is missing doses of the seizure medicine. However, sometimes seizures are difficult to control even when you take the medicine correctly. If this is the case for you, it may be necessary to increase your dosage or add or change to another medicine. Home Care: For This Seizure: Since seizures are not predictable, you must avoid doing anything that might cause danger to you or others if you have another one. Therefore, until the seizures are under good control, take these precautions: Do not drive a car, bicycle or motorcycle Do not operate dangerous equipment such as power tools Use a shower instead of a bath Do not swim or climb (ladders, trees, roofs) Tell your close friends and relatives about your seizure and teach them what to do for you if it happens again. If you were prescribed a medicine to prevent seizures, take it exactly as directed. It does not work when taken on an "as needed" basis. Missing doses will increase the risk of having another seizure. If you miss a dose, take the missed dose as soon as you remember. If it is almost time for your next dose, skip the missed dose. Restart the medicine at your next scheduled time. Do not take extra medicine to make up the missed dose. Wear a "Medic-Alert" bracelet to advise emergency personnel of your condition. For Future Seizures: If You Are Alone: If you feel a seizure coming on, the best thing to do is to lie down on a bed or on the floor. Lie on your side, not on your back. This will prevent falling, promote drainage of oral secretions out of the mouth and prevent choking. Be sure that you are clear of any objects that might injure you during the seizure. Call for help if there is time. If Someone Is With You: If someone is with you before the seizure, they should help you get in a safe position and call for help. They should not try to force anything in your mouth once the seizure has begun. Doing this may cause injury. Follow Up with your doctor, or as directed by our staff. NOTE: For the safety of yourself and others on the road, certain states require that the treating doctor inform the Public Health Department of any adult who is treated for a seizure and is at risk of further seizures. In this case, the Department of Motor Vehicles (DMV) will be notified and a restriction will be placed on your drivers license until a doctor gives you medical clearance to drive again. Contact your treating doctor to find out if your state requires the reporting of patients with a seizures condition. Get Prompt Medical Attention if any of the following occur: Seizures occurring more often or becoming longer than usual Seizure lasting over 5 minutes No wake-up between seizures Remaining confused for more than 30 minutes after a seizure Injury during a seizure Fever over 100.4F (38.0C) Unusual irritability, drowsiness or confusion Stiff or painful neck Worsening headache GERD (Adult) The esophagus is a tube that carries food from the mouth to the stomach. A valve at the lower end of the esophagus prevents stomach acid from flowing upward. If this valve does not work properly, acid from the stomach enters the esophagus. If this occurs over and over, the acid will injure the lining of the esophagus. This condition is called GERD (gastroesophageal reflux disease) or acid reflux. When stomach acid flows upward into the esophagus, it causes burning, pressure or sharp pain in the upper abdomen or mid to lower chest. The pain can spread to the neck, back, or shoulder, similar to heart pain (angina). There may be belching, an acid taste in the back of the throat, chronic cough, or sore throat or hoarseness. GERD symptoms often occur during the day after a big meal, but it can also occur at night when lying down. Smoking,as well as drinking alcohol, increases the risk of GERD. GERD is a chronic condition. Once it begins, it is often lifelong. Treatment includes changes in eating habits and the use of acid yahir medications to decrease the amount of acid in the stomach. Symptoms often improve with treatment, but if treatment is stopped, the symptoms usually return after a few months. So most persons with GERD will need to continue treatment. Home Care: Take the prescribed acid yahir medication for the full course of treatment even if you begin to feel better sooner. This medication can take up to several days to fully control your symptoms. If you cant afford the prescribed medication, you can try [id number] acid blockers, such as Pepcid AC, Tagamet, Zantac, or Aciphex. If these do not relieve your symptoms, a stronger acid-yahir can be tried, such as Prilosec OTC. You can use antacids, such as Tums, Rolaids, Mylanta, or Maalox, for pain. This will be useful the first few days after starting acid blockers when the blockers havent started working yet. Follow the directions on the label. Liquid antacids may work better than tablets. Note that antacids can interfere with absorption of certain medications. Specifically, do not take Tagamet (cimetidine), Zantac (ranitidine), or Carafate (sucralfate) within 1 hour of taking an antacid. Talk with your pharmacist if you have any questions. Limit or avoid fatty, fried, and spicy foods, as well as coffee, chocolate, mint, and foods with high acid content such as tomatoes and citrus fruit and juices (orange, grapefruit, lemon). Avoid alcohol and smoking. Dont eat large meals, especially at night. Frequent, smaller meals are best. Do not lie down right after eating. And dont eat anything 3 hours before going to bed. If you are overweight, losing weight will reduce symptoms. Women should not wear corsets or girdles because this increases pressure on the stomach and worsens reflux. If your symptoms occur during sleep, use a foam wedge to elevate your upper body (not just your head.) Or, place 4" blocks under the head of your bed. Follow Up with your doctor or as advised by our staff. Further testing may be needed. If you do not begin to improve over the next 4 days, contact your doctor. If you had an x-ray, CT scan, or ECG (electrocardiogram), it will be reviewed by a specialist. Youll be notified of any new findings that affect your care. Get Prompt Medical Attention if any of the following occur: Stomach pain gets worse or moves to the lower right abdomen (appendix area) Chest pain appears or gets worse, or spreads to the back, neck, shoulder, or arm Frequent vomiting (cant keep down liquids) Blood in the stool or vomit (red or black in color) Feeling weak or dizzy, fainting, or trouble breathing Fever of 100.4F (38C) or higher, or as directed by your healthcare provider You have been given the following additional information: Seizure, Recurrent [Adult] GERD (Adult) (Electronically signed by Thee Schaeffer MD 02/29/2016 18:35)
--- NOTE | 2016-02-29 18:35 | ED MAR SUMMARY ---
..... Medication Administration Record [facility] [address] [place], [place] [id number] Patient: STEFAN CONRAD Visit ID: [id number] 35y, M Weight: 72.5 kg Height/Length: 70 in BMI: 22.9 ALLERGIES: Morphine and Related, Penicillins, Sulfa Antibiotics
--- NOTE | 2016-02-29 18:35 | ED MAR SUMMARY ---
..... Medication Administration Record [facility] [address] [place], [place] [id number] Patient: STEFAN CONRAD Visit ID: [id number] 35y, M Weight: 72.5 kg Height/Length: 70 in BMI: 22.9 ALLERGIES: Morphine and Related, Penicillins, Sulfa Antibiotics
--- NOTE | 2016-02-29 18:35 | ED MED RECONCILIATION SUMMARY ---
Patient: STEFAN CONRAD JR Medication Reconciliation Report [facility] VisitID: [id number] [address] [place] [address] 35y, M Registration Date/Time: 02/29/2016 Weight: 72.5 kg Height/Length: 70 in. BMI: 22.9 ALLERGIES: Morphine and Related, Penicillins, Sulfa Antibiotics The patient's Home Medications are listed below: CONTINUE TAKING THE FOLLOWING MEDICATIONS: Aspir-81 Oral, Daily CarBAMazepine Oral, Stopped February 11, 2016 CoQ-10 Oral Doxycycline Hyclate Oral Erythromycin Ophthalmic, Stopped February 28, 2016 Keppra Oral Tylenol Oral 650 mg, PRN Vitamin c Oral 2000mg, Daily Vitamin D (Cholecalciferol) Oral Vitamins The source(s) of the original Home Medication information: patient's imported external medical record The following Medications were given to the patient in the Emergency Department: None. The following Medications were prescribed to the patient: None.
--- NOTE | 2016-02-29 18:35 | ED MED RECONCILIATION SUMMARY ---
Patient: STEFAN CONRAD JR Medication Reconciliation Report [facility] VisitID: [id number] [address] [place] [address] 35y, M Registration Date/Time: 02/29/2016 Weight: 72.5 kg Height/Length: 70 in. BMI: 22.9 ALLERGIES: Morphine and Related, Penicillins, Sulfa Antibiotics The patient's Home Medications are listed below: CONTINUE TAKING THE FOLLOWING MEDICATIONS: Aspir-81 Oral, Daily CarBAMazepine Oral, Stopped February 11, 2016 CoQ-10 Oral Doxycycline Hyclate Oral Erythromycin Ophthalmic, Stopped February 28, 2016 Keppra Oral Tylenol Oral 650 mg, PRN Vitamin c Oral 2000mg, Daily Vitamin D (Cholecalciferol) Oral Vitamins The source(s) of the original Home Medication information: patient's imported external medical record The following Medications were given to the patient in the Emergency Department: None. The following Medications were prescribed to the patient: None.
== END 2016-02-29 18:00 | disposition home or self-care (01) ==
LOC: ED SRH 11:47
DX: G40.909 Epilepsy, unspecified, not intractable, without status epilepticus (principal); K21.0 Gastro-esophageal reflux disease with esophagitis; J18.9 Pneumonia, unspecified organism; Z95.0 Presence of cardiac pacemaker; Z88.5 Allergy status to narcotic agent; Z88.2 Allergy status to sulfonamides; Z88.0 Allergy status to penicillin; Z79.82 Long term (current) use of aspirin; Z79.899 Other long term (current) drug therapy
CPT/HCPCS: 90074; 90100; 90616; 91320; 91556; 92095; 92610; 92720; 95059